=== PATIENT | male | born 1945 | race Caucasian/White ===

== ENCOUNTER 2018-08-06 11:30 | Emergency (ER) | payer MEDICARE ==
[~2018-08-06] VITALS: Ht 188 cm; Wt 108.9 kg
[2018-08-06 12:56] LABS: BASOPHILS ABSOLUTE AUTO 0.06 K/mm3 (0.00-0.23); BASOPHILS PERCENT AUTO 1 % (0-2); EOSINOPHILS ABSOLUTE AUTO 0.12 K/mm3 (0.00-0.68); EOSINOPHILS PERCENT AUTO 1 % (0-6); Hematocrit 44.7 % (37.0-53.0); Hemoglobin 15.2 g/dL (13.5-17.5); IMMATURE GRAN ABSOLUTE AUTO 0.03 K/mm3 (0.00-0.10); IMMATURE GRAN PERCENT AUTO 0 % (0-1); LYMPHOCYTES ABSOLUTE AUTO 1.55 K/mm3 (0.84-5.20); LYMPHOCYTES PERCENT AUTO 15 % (21-46); MONOCYTES ABSOLUTE AUTO 1.06 K/mm3 (0.16-1.47); MONOCYTES PERCENT AUTO 10 % (4-13); Mean Corpuscular HGB 29.4 pg (26.0-34.0); Mean Corpuscular Volume 87 fL (80-100); Mean Platelet Volume 9.6 fL (9.1-12.4); NEUTROPHILS ABSOLUTE AUTO 7.63 K/mm3 (1.96-9.15); NEUTROPHILS PERCENT AUTO 73 % (41-73); Platelet Count 312 K/mm3 (150-400); RDW Coefficient Variation 13.2 % (11.7-14.2); RDW Standard Deviation 41.6 fL (35.1-46.3); Red Blood Cell Count 5.17 M/mm3 (4.30-5.90); White Blood Cell Count 10.45 K/mm3 (4.00-11.30)
[2018-08-06 13:10] LABS: International Normalized Ratio 1.76; Prothrombin Time Results 17.7 Sec (9.7-11.5)
[2018-08-06 13:34] LABS: Albumin, Blood 3.5 g/dL (3.4-5.0); Albumin/Globulin Ratio 1.1 (0.8-1.8); Bilirubin, Total 0.4 mg/dL (0.1-1.0); Calcium, Blood 8.8 mg/dL (8.5-10.1); Creatinine, Blood 1.33 mg/dL (0.60-1.20); Globulin, Blood 3.3 g/dL (2.2-4.0); Potassium, Blood 3.9 mmol/L (3.5-5.5); Total Protein, Blood 6.8 g/dL (6.4-8.2)
[2018-08-06] MEDS ORDERED: WARF5 PO (13:36)
[2018-08-06] MEDS ORDERED: LOSA50 PO (13:36)
[2018-08-06] MEDS ORDERED: SIMV40 PO (13:37)
[2018-08-06] MEDS ORDERED: NYSTRITC TOP (13:37)
[2018-08-06] MEDS ORDERED: LEVSOD150 PO (13:37)
[2018-08-06] MEDS ORDERED: MONT10T PO (13:37)
[2018-08-06] MEDS ORDERED: Omeprazole20 M1 (13:37)
[2018-08-06] MEDS ORDERED: AMLO10 PO (13:38)
== END 2018-08-06 14:15 | disposition home or self-care (01) ==
LOC: ER 11:30
PROVIDERS: Emergency Medicine
DX: R55 Syncope and collapse (principal); E86.9 Volume depletion, unspecified; Z88.5 Allergy status to narcotic agent; Z88.8 Allergy status to other drugs, medicaments and biological substances
CPT/HCPCS: 36415; 71045; 80053; 85025; 85610; 93005; 93010; J7030

== ENCOUNTER 2020-04-10 21:21 | Inpatient (IN) | payer MEDICARE ==
[~2020-04-10] VITALS: Ht 188 cm; Wt 102.1 kg
[~2020-04-10 21:21] MED LIST: AMLO10 PO; LEVSOD150 PO; LOSA50 PO; MONT10T PO; NYSTRITC TOP; Omeprazole20 M1 PO; SIMV40 PO; WARF5 PO
[2020-04-10 22:24] LABS: BASOPHILS ABSOLUTE AUTO 0.04 K/mm3 (0.00-0.23); BASOPHILS PERCENT AUTO 1 % (0-2); EOSINOPHILS ABSOLUTE AUTO 0.16 K/mm3 (0.00-0.68); EOSINOPHILS PERCENT AUTO 2 % (0-6); Hematocrit 41.3 % (37.0-53.0); Hemoglobin 14.4 g/dL (13.5-17.5); IMMATURE GRAN ABSOLUTE AUTO 0.03 K/mm3 (0.00-0.10); IMMATURE GRAN PERCENT AUTO 0 % (0-1); LYMPHOCYTES ABSOLUTE AUTO 0.49 K/mm3 (0.84-5.20); LYMPHOCYTES PERCENT AUTO 6 % (21-46); MONOCYTES ABSOLUTE AUTO 0.74 K/mm3 (0.16-1.47); MONOCYTES PERCENT AUTO 10 % (4-13); Mean Corpuscular HGB 29.4 pg (26.0-34.0); Mean Corpuscular HGB Conc 34.9 g/dL (31.5-36.5); Mean Corpuscular Volume 85 fL (80-100); Mean Platelet Volume 9.4 fL (9.1-12.4); NEUTROPHILS ABSOLUTE AUTO 6.36 K/mm3 (1.96-9.15); NEUTROPHILS PERCENT AUTO 81 % (41-73); Platelet Count 222 K/mm3 (150-400); Red Blood Cell Count 4.89 M/mm3 (4.30-5.90); White Blood Cell Count 7.82 K/mm3 (4.00-11.30)
[2020-04-10 22:38] LABS: D-Dimer, Quantitative 0.2 mg/L FEU (0.00-0.52); International Normalized Ratio 1.51; Prothrombin Time Results 15.8 Sec (9.7-11.5)
[2020-04-10 22:43] LABS: Alanine Aminotransfer (ALT/SGP 25 U/L (12-78); Albumin, Blood 3.1 g/dL (3.4-5.0); Alk Phos 55 U/L (50-136); Anion Gap 8 mmol/L (6-16); Aspartate Aminotrans (AST/SGOT 11 U/L (12-37); Bilirubin, Total 0.5 mg/dL (0.1-1.0); Blood Urea Nitrogen 17 mg/dL (8-24); Bun/Creatinine Ratio 16.7 (12.0-20.0); CO2, Blood 24 mmol/L (21-32); Calcium, Blood 8.4 mg/dL (8.5-10.1); Chloride, Blood 90 mmol/L (98-108); Creatinine, Blood 1.02 mg/dL (0.60-1.20); Globulin, Blood 3.2 g/dL (2.2-4.0); Glomerular Filtration Rate >60 (60-); Glucose, Blood 112 mg/dL (70-99); Potassium, Blood 3.5 mmol/L (3.5-5.5); Sodium, Blood 122 mmol/L (136-145); Total Protein, Blood 6.3 g/dL (6.4-8.2); Troponin I <0.015 ng/mL (0.000-0.040)
[2020-04-11 02:25] LABS: Adenovirus Not Detected (NOT DETECT); Bordetella pertussis Not Detected (NOT DETECT); Chlamydophila pneumoniae Not Detected (NOT DETECT); Coronavirus 229E Not Detected (NOT DETECT); Coronavirus HKU1 Not Detected (NOT DETECT); Coronavirus NL63 Not Detected (NOT DETECT); Coronavirus OC43 Not Detected (NOT DETECT); Human Metapneumovirus Not Detected (NOT DETECT); Human Rhinovirus/Enterovirus Not Detected (NOT DETECT); Influenza A/2009-H1 Not Detected (NOT DETECT); Influenza A/H1 Not Detected (NOT DETECT); Influenza A/H3 Not Detected (NOT DETECT); Influenza B Not Detected (NOT DETECT); Mycoplasma pneumoniae Not Detected (NOT DETECT); Parainfluenza Virus 1 Not Detected (NOT DETECT); Parainfluenza Virus 2 Not Detected (NOT DETECT); Parainfluenza Virus 3 Not Detected (NOT DETECT); Parainfluenza Virus 4 Not Detected (NOT DETECT); Respiratory Syncytial Virus Not Detected (NOT DETECT); SARS-Cov-2 (COVID-19), BioFire Not Detected (NOT DETECT)
--- NOTE | 2020-04-11 03:59 | NUR ---
SAFETY SPEC SUMMARY ASSUMED CARE OF PT AROUND 0230. PT APPEARS TO BE DROWSY BUT ORIENTED. AT BEDSIDE TO ANSWER QUESTIONS. CURRENTLY USING CPAP WITH CONTINOUS BIOX IN PLACE. DENIES PAIN OR NAUSEA AT THIS TIME. GIVEN PRN APRESOLINE FOR HTN. NO ACUTE DISTRESS NOTED AT THIS TIME. BED IN LOWEST POSITION WITH CALL LIGHT IN REACH. WILL CONTINUE TO MONITOR AND REPORT TO ONCOMING RN.
[2020-04-11 05:10] LABS: BASOPHILS ABSOLUTE AUTO 0.06 K/mm3 (0.00-0.23); BASOPHILS PERCENT AUTO 1 % (0-2); EOSINOPHILS PERCENT AUTO 2 % (0-6); Hematocrit 42.8 % (37.0-53.0); Hemoglobin 14.3 g/dL (13.5-17.5); IMMATURE GRAN ABSOLUTE AUTO 0.02 K/mm3 (0.00-0.10); IMMATURE GRAN PERCENT AUTO 0 % (0-1); LYMPHOCYTES ABSOLUTE AUTO 0.64 K/mm3 (0.84-5.20); LYMPHOCYTES PERCENT AUTO 7 % (21-46); MONOCYTES ABSOLUTE AUTO 1.38 K/mm3 (0.16-1.47); MONOCYTES PERCENT AUTO 16 % (4-13); Mean Corpuscular HGB 29.2 pg (26.0-34.0); Mean Corpuscular HGB Conc 33.4 g/dL (31.5-36.5); Mean Corpuscular Volume 87 fL (80-100); Mean Platelet Volume 10.3 fL (9.1-12.4); NEUTROPHILS PERCENT AUTO 73 % (41-73); Platelet Count 134 K/mm3 (150-400); RDW Coefficient Variation 13.2 % (11.7-14.2)
[2020-04-11 05:26] LABS: International Normalized Ratio 1.54; Prothrombin Time Results 16.1 Sec (9.7-11.5)
[2020-04-11 05:31] LABS: Alanine Aminotransfer (ALT/SGP 22 U/L (12-78); Albumin/Globulin Ratio 0.9 (0.8-1.8); Alk Phos 54 U/L (50-136); Anion Gap 8 mmol/L (6-16); Aspartate Aminotrans (AST/SGOT 9 U/L (12-37); Bilirubin, Total 0.5 mg/dL (0.1-1.0); Blood Urea Nitrogen 15 mg/dL (8-24); Bun/Creatinine Ratio 15.4 (12.0-20.0); CO2, Blood 26 mmol/L (21-32); Calcium, Blood 8.3 mg/dL (8.5-10.1); Chloride, Blood 91 mmol/L (98-108); Creatinine, Blood 0.98 mg/dL (0.60-1.20); Globulin, Blood 3.4 g/dL (2.2-4.0); Glomerular Filtration Rate >60 (60-); Glucose, Blood 89 mg/dL (70-99); Sodium, Blood 125 mmol/L (136-145); Total Protein, Blood 6.4 g/dL (6.4-8.2)
[2020-04-11] MEDS ORDERED: WARF2.5 PO (08:13)
--- NOTE | 2020-04-11 10:27 | NUR ---
PATIENT COMPLAINED OF A HEADACHE. HE WAS GIVEN TYLENOL AND SWALLOWED, STATED THAT IT WENT DOWN. PATIENT THEN REPORTED THAT HE FELT LIKE THE PILL WAS STUCK. HE NOTED T OHAVE A SORE THROAT THIS MORNING. ASKED IF HE HAS EVER HAD ANY PROBLEM WITH SWALLOWING ISSUES BEFORE HE AND THE DENIES THAT. THE STATES SHE BELIEVES THAT IT IS IN PART TO THE FACT THAT THE PATIENT'S THROAT HURTS AND HE HAS HAD THAT FEELING BEFORE WHEN HIS THROAT WAS SORE. PATIENT ABLE TO SWALLOW WATER, APPLESAUCE, AND CRACKERS SINCE. HE IS JUST WANTING TO FALL ASLEEP. WILL ADDRESS THIS WITH DR. CALLEJAS WHEN HE MAKES HIS ROUNDS.
--- NOTE | 2020-04-11 18:08 | NUR ---
shift summary patient is alert and oriented. denies any concerns at this time. he is pleasant but very tired. is in the room with him at this time. he reports pain in his throat and reports he is having trouble swallowing his pills. this has been the second time today that the patient has struggled with pills. they went down on their own the first time. the patient denies having any trouble with pills in the past. he reports that he is feeling better today. his saturation is above 95% on room air. he uses cpap at night but no oxygen. patient is still on the continuous biox. he is more alert than the beginning of shift although he is tired. he denies chest pain.
--- NOTE | 2020-04-12 04:42 | NUR ---
DISK SHARPENER SUMMARY A/OX3. APPEARED TO SLEEP T/O THE NIGHT. MEDS GIVEN WHOLE IN APPLESAUCE D/T SORE THROAT AND TROUBLE SWALLOWING. COMPLIANT WITH CPAP, CONTINOUS BIOX IN PLACE. VSS. NO ACUTE CHANGES AT THIS TIME. BED IN LOWEST POSITION WITH CALL LIGHT IN REACH. WILL CONTINUE TO MONITOR AND REPORT TO ONCOMING RN.
[2020-04-12 05:16] LABS: International Normalized Ratio 1.86; Prothrombin Time Results 19.2 Sec (9.7-11.5)
[2020-04-12 05:19] LABS: Anion Gap 8 mmol/L (6-16); Blood Urea Nitrogen 11 mg/dL (8-24); CO2, Blood 25 mmol/L (21-32); Calcium, Blood 7.9 mg/dL (8.5-10.1); Chloride, Blood 91 mmol/L (98-108); Creatinine, Blood 0.79 mg/dL (0.60-1.20); Glomerular Filtration Rate >60 (60-); Glucose, Blood 102 mg/dL (70-99); Potassium, Blood 3.5 mmol/L (3.5-5.5); Sodium, Blood 124 mmol/L (136-145)
--- NOTE | 2020-04-12 17:55 | NUR ---
SHIFT SUMMARY PT A/O X3; PLEASANT AND COOPERATIVE WITH CARE. HE IS A 1 PERSON ASSIST TO THE BA AND USES THE URINAL AT THE SIDE OF THE BED. IN THE ROOM FOR THE MOST OF THE DAY. PT HAD A HEAD AND CHEST C/T TODAY AND EXPERIENCED SOME INCONTINENCE OF URINE AFTER THE PROCEDURE. 1000 ML FREE FLUID RESTRICTION IN ADDITION TO 1000 REGULAR FLUID RESTRICTION TO TOTAL 2000 ML FLUID RESTRICTION. ON TELE AND CONT PULSE OX. VSS; WCTM.
--- NOTE | 2020-04-13 04:29 | NUR ---
SHIFT SUMMARY AOX4. REPORTS 02/18 TOVAR & 10/18 NECK PAIN, MEDICATED 2X c TYLENOL-PT STATES RELIEF. REPORTS FEELING WEAK. VSS. TELE NSR @85. STATES SORE THROAT MAKES IT DIFFICULT TO SWALLOW, MEDS GIVEN IN APPLESAUCE & PT TOLERATED, PT USING CLORASEPTIC SPRAY PRN. LUNGS SOUND DIM T/O, E/U RESP, SPO2 >92% ON RA. PT REFUSED TO WEAR CPAP T/O NIGHT. HAS OCCASIONAL PRODUCTIVE COUGH c MODERATE THIN CLEAR SPUTUM. ABD VERY ROUND & FIRM. DENIES N/V. NS RUNNING @50ML/HR. PT VOIDED MULTIPLE TIMES THIS SHIFT. CALL LIGHT IN REACH.
[2020-04-13 05:20] LABS: International Normalized Ratio 1.97; Prothrombin Time Results 20.3 Sec (9.7-11.5)
[2020-04-13 05:25] LABS: Anion Gap 5 mmol/L (6-16); Blood Urea Nitrogen 11 mg/dL (8-24); Bun/Creatinine Ratio 10.9 (12.0-20.0); CO2, Blood 28 mmol/L (21-32); Calcium, Blood 8.1 mg/dL (8.5-10.1); Chloride, Blood 96 mmol/L (98-108); Creatinine, Blood 1.01 mg/dL (0.60-1.20); Glomerular Filtration Rate >60 (60-); Glucose, Blood 103 mg/dL (70-99); Potassium, Blood 3.5 mmol/L (3.5-5.5); Sodium, Blood 129 mmol/L (136-145)
[2020-04-13] MEDS ORDERED: VERA80 PO (08:35)
[2020-04-13] MEDS ORDERED: FLUT.05NI (08:36)
[2020-04-13] MEDS ORDERED: ACET325 PO (10:45)
[2020-04-13] MEDS ORDERED: AZIT250 PO (10:45)
[2020-04-13] MEDS ORDERED: SENN187 PO (10:46)
[2020-04-13] MEDS ORDERED: GUAI600T33 PO (10:46)
[2020-04-13] MEDS ORDERED: VISBIOME PROBIOTIC PO (10:48)
--- NOTE | 2020-04-13 11:43 | NUR ---
DISCHARGE SUMMARY PT A/O X3; PLEASANT AND COOPERATIVE WITH CARE. IN THE ROOM. PT COUGHING UP LARGE AMOUNTS OF THIN/CLEAR SPUTUM. IV DISCHARGED WITHIN NORMAL LIMITS. INSTRUCTED TO FOLLOW UP WITH PRIMARY PROVIDER AT [facility]. PT DISCHARGED HOME WITH .
== END 2020-04-13 11:40 | disposition home or self-care (01) | DRG 643 ==
LOC: ER 21:21 → MEDS 21:22
PROVIDERS: Emergency Medicine; Family Medicine; Internal Medicine; ADMIT Internal Medicine
DX: E22.2 Syndrome of inappropriate secretion of antidiuretic hormone (principal); J18.9 Pneumonia, unspecified organism; J44.1 Chronic obstructive pulmonary disease with (acute) exacerbation; J98.11 Atelectasis; J44.0 Chronic obstructive pulmonary disease with (acute) lower respiratory infection; Z79.01 Long term (current) use of anticoagulants; K21.9 Gastro-esophageal reflux disease without esophagitis; E03.9 Hypothyroidism, unspecified; E78.5 Hyperlipidemia, unspecified; Z86.718 Personal history of other venous thrombosis and embolism; I10 Essential (primary) hypertension; G47.33 Obstructive sleep apnea (adult) (pediatric); E66.9 Obesity, unspecified; Z20.828 Contact with and (suspected) exposure to other viral communicable diseases
CPT/HCPCS: 0202U; 36415; 70470; 71045; 71260; 80048; 80053; 83880; 83930; 83935; 84484; 85025; 85379; 85610; 87070; 87205; 87449; 93005; 93010; 94660; 94762; 96365; 96367; 96375; 97116; 97161; 97530; 99285-25; A9270; A9270-GY; G0378; J0456; J0696; J7030; J7050; Q9967

== ENCOUNTER 2020-04-26 10:17 | Inpatient (IN) | payer MEDICARE ==
[~2020-04-26] VITALS: Ht 188 cm; Wt 103.8 kg
[~2020-04-26 10:17] MED LIST changes: +ACET325 PO; +AZIT250 PO; +FLUT.05NI; +GUAI600T33 PO; +OMEP20ER PO; -Omeprazole20 M1 PO; +SENN187 PO; +VERA80 PO; +VISBIOME PROBIOTIC PO; +WARF2.5 PO
[2020-04-26 10:48] LABS: BASOPHILS ABSOLUTE AUTO 0.06 K/mm3 (0.00-0.23); BASOPHILS PERCENT AUTO 1 % (0-2); EOSINOPHILS ABSOLUTE AUTO 0.15 K/mm3 (0.00-0.68); EOSINOPHILS PERCENT AUTO 2 % (0-6); Hematocrit 42.4 % (37.0-53.0); Hemoglobin 14.4 g/dL (13.5-17.5); IMMATURE GRAN ABSOLUTE AUTO 0.04 K/mm3 (0.00-0.10); IMMATURE GRAN PERCENT AUTO 0 % (0-1); LYMPHOCYTES ABSOLUTE AUTO 1.52 K/mm3 (0.84-5.20); LYMPHOCYTES PERCENT AUTO 17 % (21-46); MONOCYTES ABSOLUTE AUTO 0.95 K/mm3 (0.16-1.47); MONOCYTES PERCENT AUTO 11 % (4-13); Mean Corpuscular HGB 29.5 pg (26.0-34.0); Mean Corpuscular Volume 87 fL (80-100); Mean Platelet Volume 9.4 fL (9.1-12.4); NEUTROPHILS ABSOLUTE AUTO 6.37 K/mm3 (1.96-9.15); NEUTROPHILS PERCENT AUTO 70 % (41-73); Platelet Count 320 K/mm3 (150-400); RDW Coefficient Variation 13.2 % (11.7-14.2); RDW Standard Deviation 41.6 fL (35.1-46.3); Red Blood Cell Count 4.88 M/mm3 (4.30-5.90); White Blood Cell Count 9.09 K/mm3 (4.00-11.30)
[2020-04-26] MEDS ORDERED: Vitamin D2000 UNIT PO (10:52)
[2020-04-26] MEDS ORDERED: CHLO4 (10:53)
[2020-04-26 10:59] LABS: Alanine Aminotransfer (ALT/SGP 24 U/L (12-78); Albumin, Blood 3.4 g/dL (3.4-5.0); Albumin/Globulin Ratio 0.9 (0.8-1.8); Alk Phos 64 U/L (50-136); Anion Gap 9 mmol/L (6-16); Aspartate Aminotrans (AST/SGOT 14 U/L (12-37); Bilirubin, Total 0.6 mg/dL (0.1-1.0); Blood Urea Nitrogen 50 mg/dL (8-24); Bun/Creatinine Ratio 26.9 (12.0-20.0); CO2, Blood 25 mmol/L (21-32); Calcium, Blood 8.8 mg/dL (8.5-10.1); Chloride, Blood 106 mmol/L (98-108); Creatinine, Blood 1.86 mg/dL (0.60-1.20); Globulin, Blood 3.7 g/dL (2.2-4.0); Glomerular Filtration Rate 38 (60-); Glucose, Blood 93 mg/dL (70-99); Potassium, Blood 3.1 mmol/L (3.5-5.5); Sodium, Blood 140 mmol/L (136-145); Total Protein, Blood 7.1 g/dL (6.4-8.2); Troponin I <0.015 ng/mL (0.000-0.040)
[2020-04-26 11:18] LABS: International Normalized Ratio 3.32; Prothrombin Time Results 33.2 Sec (9.7-11.5)
--- NOTE | 2020-04-26 18:46 | NUR ---
HE HAS BEEN ADMITTED TO 363 FROM THE ED. HE IS ORIENTED. HE IS WEAK. HIS MAIN COMPLAINT IS HIS SECRETIONS THAT HE CANNOT SWALLOW AND NASAL CONGESTION. FLONASE STARTED. IVF'S AND IV ANTIBIOTIC STARTED. HE HAS HIS OWN SUCTION WAND FOR HIS SECRETIONS AND USES IT WELL. NO CP. NO SOB EXCEPT WHEN HE HAS HICCOUGHS/SPASMS INTERMITTENTLY. HE IS NPO. CARDIAC CONSULT CALLED FOR THE MORNING. CONTINUOUS BIOX ON. WILL NEED TO START O2 BECAUSE WHEN HE JUST FELL ASLEEP HE DESATTED TO 80% FROM THE HIGH 90'S. I JUST SPOKE WITH . NEW ORDER FOR TELE AND FOR CPAP IF HE WANTS TO WEAR IT.
--- NOTE | 2020-04-27 04:30 | NUR ---
SHIFT SUMMARY ASSUMED CARE OF PT AT 1900. PT IS A/OX4. HEART SOUNDS REGULAR, TELE SHOWS SINUS @ 79. LUNG SOUNDS CLEAR, PT WAS ON 2L NC T/O THE NIGHT DUE TO REFUSING TO WEAR CPAP DUE TO HICCUPS/ EXCESS SILIVA. WHEN AWAKE, PT WOULD HICCUP/ COUGH/GAG ON HIS SILIVA, PT WAS NOT ABLE TO GET MUCH SLEEP DUE TO THIS. PT SUCSIONED HIMSELF T/O THE NIGHT. PT SITS ON THE SIDE OF THE BED INDEPENDENTLY TO USE THE URINAL. CALL LIGHT IN REACH, BED IN LOWEST POSITION, WILL CONTINUE TO MONITOR.
[2020-04-27 04:35] LABS: BASOPHILS ABSOLUTE AUTO 0.01 K/mm3 (0.00-0.23); BASOPHILS PERCENT AUTO 0 % (0-2); EOSINOPHILS PERCENT AUTO 0 % (0-6); Hematocrit 41.6 % (37.0-53.0); Hemoglobin 13.6 g/dL (13.5-17.5); IMMATURE GRAN ABSOLUTE AUTO 0.03 K/mm3 (0.00-0.10); IMMATURE GRAN PERCENT AUTO 1 % (0-1); LYMPHOCYTES ABSOLUTE AUTO 0.52 K/mm3 (0.84-5.20); LYMPHOCYTES PERCENT AUTO 9 % (21-46); MONOCYTES ABSOLUTE AUTO 0.06 K/mm3 (0.16-1.47); MONOCYTES PERCENT AUTO 1 % (4-13); Mean Corpuscular HGB 28.9 pg (26.0-34.0); Mean Corpuscular HGB Conc 32.7 g/dL (31.5-36.5); Mean Corpuscular Volume 89 fL (80-100); Mean Platelet Volume 9.4 fL (9.1-12.4); NEUTROPHILS ABSOLUTE AUTO 4.95 K/mm3 (1.96-9.15); NEUTROPHILS PERCENT AUTO 89 % (41-73); Platelet Count 305 K/mm3 (150-400); RDW Coefficient Variation 13.1 % (11.7-14.2); RDW Standard Deviation 42.7 fL (35.1-46.3); White Blood Cell Count 5.57 K/mm3 (4.00-11.30)
[2020-04-27 05:03] LABS: Albumin, Blood 3.1 g/dL (3.4-5.0); Albumin/Globulin Ratio 0.9 (0.8-1.8); Bilirubin, Total 0.4 mg/dL (0.1-1.0); Bun/Creatinine Ratio 33.8 (12.0-20.0); Calcium, Blood 8.7 mg/dL (8.5-10.1); Creatinine, Blood 1.33 mg/dL (0.60-1.20); Globulin, Blood 3.6 g/dL (2.2-4.0); Potassium, Blood 4.1 mmol/L (3.5-5.5); Total Protein, Blood 6.7 g/dL (6.4-8.2)
--- NOTE | 2020-04-27 13:20 | NUR ---
Patient is lying in bed and alert. Patient tells me about his medical issues and about his fears of throat cancer. Patient then talks at length about his latter-day views and his spiritual journey. I listen empathically., normalize patient's experience and provide prayer. Patient responds well and shows signs of being encouraged. I will continue to remain available to patient and family.
--- NOTE | 2020-04-28 04:51 | NUR ---
SHIFT SUMMARY PT CONTINUES TO HAVE ISSUES SWALLOWING HIS OWN SALIVA AND HAS HAD TO USE THE YANKER SUCTION AT THE BEDSIDE CONSTANTLY T/O THE SHIFT. THE INABILITY TO SWALLOW HIS SALIVA HAS BEEN SO DISRUPTIVE THAT HE HAS BEEN UNABLE TO SLEEP MOST OF THE NIGHT. PT REMAINS NPO, PENDING FURTHER TESTING AND POSSIBLE UPPER SCOPE TODAY. PT DENIES SOB, BUT DOES APPEAR LABORED WITH EXERTION. O2 IN PLACE. IV SOULMEDROL CONTINUED PER ORDERS. SATS WNL. PT A/OX4, PLESANT WITH CARE. NO ACUTE CHANGES OVERNIGHT. BED IN LOWEST POSITION, CALL LIGHT WITHIN REACH.
[2020-04-28 05:07] LABS: BASOPHILS ABSOLUTE AUTO 0.01 K/mm3 (0.00-0.23); BASOPHILS PERCENT AUTO 0 % (0-2); EOSINOPHILS PERCENT AUTO 0 % (0-6); Hematocrit 44.4 % (37.0-53.0); Hemoglobin 14.5 g/dL (13.5-17.5); IMMATURE GRAN ABSOLUTE AUTO 0.05 K/mm3 (0.00-0.10); IMMATURE GRAN PERCENT AUTO 1 % (0-1); LYMPHOCYTES ABSOLUTE AUTO 0.68 K/mm3 (0.84-5.20); LYMPHOCYTES PERCENT AUTO 7 % (21-46); MONOCYTES ABSOLUTE AUTO 0.36 K/mm3 (0.16-1.47); MONOCYTES PERCENT AUTO 4 % (4-13); Mean Corpuscular HGB 28.9 pg (26.0-34.0); Mean Corpuscular HGB Conc 32.7 g/dL (31.5-36.5); Mean Corpuscular Volume 88 fL (80-100); Mean Platelet Volume 9.7 fL (9.1-12.4); NEUTROPHILS ABSOLUTE AUTO 8.34 K/mm3 (1.96-9.15); NEUTROPHILS PERCENT AUTO 88 % (41-73); Platelet Count 324 K/mm3 (150-400); RDW Coefficient Variation 13.3 % (11.7-14.2); RDW Standard Deviation 43.3 fL (35.1-46.3); Red Blood Cell Count 5.02 M/mm3 (4.30-5.90); White Blood Cell Count 9.44 K/mm3 (4.00-11.30)
[2020-04-28 05:26] LABS: Anion Gap 8 mmol/L (6-16); Blood Urea Nitrogen 38 mg/dL (8-24); Bun/Creatinine Ratio 35.5 (12.0-20.0); CO2, Blood 24 mmol/L (21-32); Calcium, Blood 8.3 mg/dL (8.5-10.1); Chloride, Blood 114 mmol/L (98-108); Creatinine, Blood 1.07 mg/dL (0.60-1.20); Glomerular Filtration Rate >60 (60-); Glucose, Blood 123 mg/dL (70-99); Sodium, Blood 146 mmol/L (136-145)
[2020-04-28 10:44] LABS: Influenza A, PCR Negative (NEGATIVE); Influenza B, PCR Negative (NEGATIVE); Resp Syncytial Virus, PCR Negative (NEGATIVE); SARS-Cov-2 (COVID-19) PCR, MMC Negative (NEGATIVE)
--- NOTE | 2020-04-28 12:45 | NUR ---
UPSET STOMACH: PATIENT REPORTING MILD DISCOMFORT IN HIS STOMACH. SPOKE WITH DR. INMAN. NEW ORDER FOR DAILY ANTI-EMETIC.
--- NOTE | 2020-04-28 13:39 | NUR ---
BURNING EYES: PATIENT REPORTING SOME ALLERGIES CAUSING HIS RIGHT EYE TO BURN. DISCUSSED WITH DR. INMAN. NEW ORDERS FOR EYE DROPS.
--- NOTE | 2020-04-28 13:42 | NUR ---
DISCHARGE SUMMARY: LATE ENTRY FOR 13:10: PATIENT DENIED PAIN OR DISCOMFORT THROUGHOUT SHIFT. PATIENT DENIED FEELING FEBRILE. NEUTROPENIC PRECAUTIONS MAINTAINED. PATIENT ATE HER BREAKFAST AND LUNCH. PATIENT DENIED NAUSEA OR DIFFICULTY EATING. ATTEMPTED TO MAKE A FOLLOW-UP APPOINTMENT FOR THE PATIENT WITH DR. Rhina HALEY. THE OFFICE WAS CLOSED FOR LUNCH. MESSAGE WAS LEFT FOR THE OFFICE TO CALL THE PATIENT. PATIENT NOTIFIED. PATIENT REPORTS THAT SHE ALREADY HAS AN APPOINTMENT WITH HER ONCOLOGIST IN [place] WITH DR. HEENA BELLO. DISCHARGE RX FAXED TO [facility] PER PATIENT REQUEST. DISCHARGE EDUCATION AND INSTRUCTIONS PROVIDED. ALL QUESTIONS AND CONCERNS ADDRESSED. PATIENT DISCHARGED WITH HER MOTHER. PATIENT STABLE AT TIME OF DISCHARGE.
--- NOTE | 2020-04-28 19:14 | NUR ---
ASSUMED CARE RECEIVED REPORT FROM NADIRA STEINER. ASSUMED CARE OF PT. PT RESTING COMFORTABLY, NO S/S ACUTE DISTRESS NOTED, RESPS EVEN AND UNLABORED, PT SELF-SUCTIONING WITH SREE. HEADING HOME FOR THE EVENING. PT ASKING FOR CLEAR LIQUID SNACKS AT THIS TIME. CALL LIGHT, POSSESSIONS IN REACH, BED IN LOW POSITION. WCTM.
--- NOTE | 2020-04-28 19:37 | NUR ---
END OF SHIFT SUMMARY: PATIENT DENIED PAIN THROUGHOUT SHIFT. PATIENT REPORTED IRRITATED EYES, NEW ORDER FOR EYE DROPS RECEIVED. PATIENT REPORTED UPSET STOMACH IN THE MORNING. NEW ORDER TO ANTI-EMETIC. PATIENT CONTINUES TO HAVE SOME HICCOUPS/ALMOST SPASMS THAT CAUSE HIM TO NEED TO SPIT AND CLEAR HIS MOUTH/THROAT WITH THE ORAL SUCTION. CONTINUES TO ROUTINELY CLEAR MOUTH WITH ORAL SUCTION. SECRETIONS ARE CLEAR. EGD WILL OCCUR TOMORROW MORNING. IS AWARE AND WILL BE HERE IN THE MORNING. PATIENT IS AWARE THAT HE IS NPO AT MIDNIGHT.
[2020-04-29 05:27] LABS: BASOPHILS ABSOLUTE AUTO 0.01 K/mm3 (0.00-0.23); BASOPHILS PERCENT AUTO 0 % (0-2); EOSINOPHILS PERCENT AUTO 0 % (0-6); Hematocrit 43.1 % (37.0-53.0); Hemoglobin 14.5 g/dL (13.5-17.5); IMMATURE GRAN ABSOLUTE AUTO 0.05 K/mm3 (0.00-0.10); IMMATURE GRAN PERCENT AUTO 1 % (0-1); LYMPHOCYTES ABSOLUTE AUTO 0.89 K/mm3 (0.84-5.20); LYMPHOCYTES PERCENT AUTO 9 % (21-46); MONOCYTES ABSOLUTE AUTO 0.52 K/mm3 (0.16-1.47); MONOCYTES PERCENT AUTO 5 % (4-13); Mean Corpuscular HGB 29.1 pg (26.0-34.0); Mean Corpuscular HGB Conc 33.6 g/dL (31.5-36.5); Mean Corpuscular Volume 87 fL (80-100); Mean Platelet Volume 9.6 fL (9.1-12.4); NEUTROPHILS ABSOLUTE AUTO 8.72 K/mm3 (1.96-9.15); NEUTROPHILS PERCENT AUTO 86 % (41-73); Platelet Count 315 K/mm3 (150-400); RDW Coefficient Variation 13.2 % (11.7-14.2); RDW Standard Deviation 41.7 fL (35.1-46.3); Red Blood Cell Count 4.98 M/mm3 (4.30-5.90); White Blood Cell Count 10.19 K/mm3 (4.00-11.30)
[2020-04-29 05:43] LABS: International Normalized Ratio 3.29; Prothrombin Time Results 32.9 Sec (9.7-11.5)
[2020-04-29 05:46] LABS: Anion Gap 8 mmol/L (6-16); Blood Urea Nitrogen 38 mg/dL (8-24); Bun/Creatinine Ratio 35.5 (12.0-20.0); CO2, Blood 22 mmol/L (21-32); Calcium, Blood 8.7 mg/dL (8.5-10.1); Chloride, Blood 116 mmol/L (98-108); Creatinine, Blood 1.07 mg/dL (0.60-1.20); Glomerular Filtration Rate >60 (60-); Glucose, Blood 152 mg/dL (70-99); Potassium, Blood 3.5 mmol/L (3.5-5.5); Sodium, Blood 146 mmol/L (136-145)
--- NOTE | 2020-04-29 07:40 | NUR ---
SHIFT SUMMARY PT RESTING COMFORTABLY, NO S/S ACUTE DISTRESS NOTED. PT ATTEMPTED TO EAT SOME JELLO AND CHICKEN BROTH LAST NIGHT, UNABLE TO SWALLOW SAFELY, COUGHING CONSTANTLY. INSTRUCTED PT TO STOP ATTEMPTING TO EAT, RECEPTIVE. COUGH HARSH, PT REPORTING NAUSEA AND HICCUPS FROM MULTIPLE COUGHING FITS, CONTINUES TO SELF-SUCTION APPROPRIATELY. VS REVIEWED, STABLE, O2 SATS STABLE ON NC. PT NPO P MN FOR EGD THIS AM. AT THE BEDSIDE. CALL LIGHT, POSSESSIONS IN REACH, BED IN LOW POSITION. REPORT GIVEN TO NADIRA WATSON.
--- NOTE | 2020-04-29 15:05 | NUR ---
PT OFF UNIT TO DAY SURGERY VIA [facility] AT 0525. ACCOMPANIED.
--- NOTE | 2020-04-29 15:28 | NUR ---
04/29/20 1528 Yelena Burorughs [facility] [place]. SEE ANETHERSIA RECORD FOR CARE
--- NOTE | 2020-04-29 18:55 | NUR ---
SHIFT SUMMARY: PT TO DAY SURGERY FOR EGD AT 1500, RETURNED AT 1530. HYPERTENSIVE HE IS UNABLE TO TAKE PO MEDS; SPOKE TO DR. INMAN BY PHONE AT 1815, RECEIVED ORDER FOR LABETOLOL IV. C/O ABD PAIN FROM COUGHING AND PERSISTENT HICCUPS, BUT DECLINED PAIN MEDICATIONS. NO EVENTS ON TELEMETRY, SR 70-90. IVF CHANGED TO CLINIMIX AND LIPIDS PT'S SPOUSE CONCERNED ABOUT HIS NUTRITION. ATIVAN 0.5 MG IV CALMED HICCUPS FOR A SHORT TIME. GETTING UP TO BSC WITH 1 PERSON ASSIST. SUCTIONING OWN SECRETIONS. WILL HAVE SPEECH THERAPY EVAL IN THE MORNING.
--- NOTE | 2020-04-29 19:05 | NUR ---
ASSUMED CARE RECEIVED REPORT FROM NADIRA WATSON. ASSUMED CARE OF PT. RESTING COMFORTABLY, NO S/S ACUTE DISTRESS NOTED. DENIES NEEDS AT THIS TIME. CALL LIGHT, POSSESSIONS IN REACH, MATI.
--- NOTE | 2020-04-29 20:45 | NUR ---
SPOKE TO DR. DOWLING REGARDING PT'S BP, ALLERGY TO METOPROLOL. INFORMED OF CONVERSATION WITH PHARMACY, STATING THAT PT SHOULD NOT HAVE A REACTION D/T ADMINISTRATION OF SOLU-MEDROL. ORDERS RECEIVED. CONTINUE TO MONITOR.
[2020-04-30 06:29] LABS: Anion Gap 8 mmol/L (6-16); Blood Urea Nitrogen 36 mg/dL (8-24); Bun/Creatinine Ratio 37.5 (12.0-20.0); CO2, Blood 23 mmol/L (21-32); Calcium, Blood 8.2 mg/dL (8.5-10.1); Chloride, Blood 113 mmol/L (98-108); Creatinine, Blood 0.96 mg/dL (0.60-1.20); Glomerular Filtration Rate >60 (60-); Glucose, Blood 154 mg/dL (70-99); Potassium, Blood 3.4 mmol/L (3.5-5.5); Sodium, Blood 144 mmol/L (136-145)
--- NOTE | 2020-04-30 07:05 | NUR ---
SHIFT SUMMARY PT RESTING COMFORTABLY, NO S/S ACUTE DISTRESS NOTED. WAS MONITORED EVERY 1-2 HOURS WITH NEEDS MET. MEDICATED PER EMAR FOR HTN, NO S/S ADVERSE REACTION NOTED TO LABETALOL, NO C/O "TONGUE SWELLING" OR DYSPNEA. VS REVIEWED, BP'S STABLE. WET PRODUCTIVE COUGH CONTINUES, PT SELF-SUCTIONING APPROPRIATELY. MEDICATED X1 FOR ANXIETY/HICCUPS, EFFECTIVE. DENIES NEEDS AT THIS TIME. CALL LIGHT, POSSESSIONS IN REACH, BED IN LOW POSITION. REPORT GIVEN TO NADIRA MOORE.
--- NOTE | 2020-04-30 19:42 | NUR ---
SHIFT SUMMARY PT AXO, PLEASANT AND COOPERATIVE WITH CARE THOUGH EMOTIONAL AT TIMES. VSS. PT SWALLOWED WATER ALLOWED BY DR SOSA. TOLERATED WELL. PT TOLERATED SOME VERY THIN BEEF BROTH BUT PT STATES THAT THE BROTH WAS FOR HIS EMOTIONAL WELLBEING RATHER THAN FOR NUTRITION. CBG STABLE. CLINAMIX INFUSING PER EMAR. IV PATENT AND INFUSING AT THIS TIME. PT SUCTIONS SELF PRN. FREQUENT PRODUCTIVE COUGH. BED IN LOW POSITION, CALL LIGHT WITHIN REACH.
[2020-05-01 06:33] LABS: Anion Gap 7 mmol/L (6-16); Blood Urea Nitrogen 43 mg/dL (8-24); Bun/Creatinine Ratio 38.1 (12.0-20.0); CO2, Blood 26 mmol/L (21-32); Calcium, Blood 8.2 mg/dL (8.5-10.1); Chloride, Blood 112 mmol/L (98-108); Creatinine, Blood 1.13 mg/dL (0.60-1.20); Glomerular Filtration Rate >60 (60-); Glucose, Blood 149 mg/dL (70-99); Magnesium, Blood 2.2 mg/dL (1.6-2.4); Phosphorus, Blood 2.8 mg/dL (2.5-4.9); Potassium, Blood 3.4 mmol/L (3.5-5.5); Sodium, Blood 145 mmol/L (136-145)
[2020-05-01 06:39] LABS: International Normalized Ratio 1.28; Prothrombin Time Results 13.5 Sec (9.7-11.5)
--- NOTE | 2020-05-01 17:33 | NUR ---
SHIFT SUMMARY PT ALERT ORIENTED X4. CALLS APPROPRIATELY; AT BEDSIDE. FEEDING TUBE IS RUNNING CONTINUOSLY; DOBHOFF WAS PLACED THIS AM; TOLERATING WELL. PT WILL HAVE A PEG TUBE PLACE POSSIBLY SUNDAY. URINAL AT BEDSIDE; PT C/O SHOULDER PAIN- PT STATED MORE LIKE ARTHRITIS PAIN MEDICATED PER EMAR. BED IS IN THE LOWEST POSITION AND CALL LIGHTS WITHIN REACH
[2020-05-02 05:05] LABS: Magnesium, Blood 2.3 mg/dL (1.6-2.4); Phosphorus, Blood 3.1 mg/dL (2.5-4.9)
--- NOTE | 2020-05-02 07:22 | NUR ---
SHIFT SUMMARY: VSS. AFEB. AAOX3. QUIET RASPY VOICE. FREQUENT HACKING/HICCUPING/COUGHING FOLLOWED BY PRODUCTION AND SUCTION OF MOD AMTS OF SPUTUM. COUGHING/HICCUPING RESPONDED BEST TO ATIVAN. SOME RELIEF FROM COUGH SYRUP. TYL GIVEN FOR BACK PAIN DUE TO PT REMAINED W/HOB ELEVATED 2ND TO CONT NGT FEEDS. NGT RESIDUAL CHECKS: 90, 55, 145. TF SPEED INCREASED TO 35MLS/HR AT 2245, THEN 45MLS/HR AT 0545. NO ACUTE CHANGES OVERNIGHT.
--- NOTE | 2020-05-02 17:54 | NUR ---
SHIFT SUMMARY PT ALERT ORIENTEDX 4. CALLS APPROPRIATELY. AT BEDSIDE HALF THE DAY. PT IS ON [place] PUMP WITH THE RATE OF 55ML/HR; GOAL RATE OF 70; TOLERATING WELL AND 5ML RESIDUAL VOLUME. LUNG SOUNDS CLEAR; AND NO APPARENT DISTRESS. NO C.O PAIN, NAUSEA OR VOMITING. PT IS GETTING MEDICATION FOR COUGH PRN; AND SEEMS TO BE HELPING PER PT. PEG TUBE PLACEMENT FOR TOMORROW; PT GIVEN HEPARIN DOSE TODAY; AND HOLD OFF THE DOSE AT MIDNIGHT FOR PEG PLACEMENT. BED IS IN THE LOWEST POSITION AND CALL LIGHTS WITHIN REACH.
--- NOTE | 2020-05-03 05:18 | NUR ---
SHIFT SUMMARY: VSS. AFEB. AAOX3. VOICE QUIET AND HOARSE. DENIES SOB. HICCUPING, COUGHING, AND RETCHING IS LESS FREQUENT TONIGHT. THORAZINE AND COUGH SYRUP GIVEN PER ORDERS. NGT IN PLACE. TF STOPPED PER MD ORDERS AT 0045. PT REMAINS NPO IN PREPARATION FOR PEG PLACEMENT TODAY. NO ACUTE CHANGES OVERNIGHT. WILL CONT TO MONITOR.
[2020-05-03 10:15] LABS: International Normalized Ratio 1.07; Prothrombin Time Results 11.4 Sec (9.7-11.5)
--- NOTE | 2020-05-03 14:06 | NUR ---
PT TRANSPORTED TO [facility]. AGREES WITH PLANNED PROCEDURE.
--- NOTE | 2020-05-03 14:26 | NUR ---
05/03/20 1426 ALTAGRACIA MON History, Chart, Medications and Allergies reviewed before start of procedure. 3-LEAD EKG REVIEWED WITH PHYSICIAN PRIOR TO START OF PROCEDURE. O2 VIA N/C INTACT THROUGHOUT SEDATION/PROCEDURE. MONITOR INTACT WITH CONTINUOUS PULSE OXIMETRY AND INTERMITTENT BP. MAC WITH DR. TORRES
--- NOTE | 2020-05-03 15:07 | NUR ---
PATIENT ARRIVED BACK FROM DAY SURGERY FOR A PEG TUBE PLACEMENT. VSS, ON RA. TUBE HAS BEEN CLEARED TO USE AFTER 184 THIS EVENING. AT BEDSIDE.
--- NOTE | 2020-05-03 19:26 | NUR ---
PATIENT A/OX4, UP WITH FWW AND 1 ASSIST. PEG TUBE PLACED THIS AFTERNOON AND TUBE FEEDS STARTED THIS EVENING. PATIENT CONTINUES TO HAVE LARGE AMOUNT OF MUCOUS, REPSONDS WELL TO GUIFENASIN. HICCUPS WELL CONTROLLED WITH THORAZINE. CONTINUOUS BIOX FOR HX OF COPD, PATIENT MAINTAINING SATS ON RA. 20G IV R AC WNL AND SL. PATIENT DENIES ANY PAIN THIS SHIFT. HEPARIN FOR DVT PROPHYLAXIS UNTIL COUMADIN CAN BE RESUMED. VERY SUPPORTIVE.
--- NOTE | 2020-05-04 03:21 | NUR ---
GASTRIC RESIDUAL = 120cc. Pt tolerating cont feed well. No c/o abdominal discomfort. Rate increased to 35 ml/hr as ordered. Will cont to monitor.
--- NOTE | 2020-05-04 04:51 | NUR ---
TRAFFIC DIRECTOR SUMMARY PT A&OX4, ABLE TO MAKE NEEDS KNOWN. PLEASANT AND COOPERATIVE TO CARE. PT MEDICATED FOR L FOOT PAIN PER EMAR. NWB ON L FOOT. WALKING BOOT WHEN UP. CALM AND RESTED IN BED T/O SHIFT. DENIES CP, SOB, OR N&V. DRESSING TO L FOOT CDI. CALL LIGHT WITHIN REACH. WILL CONT TO MONITOR PT FOR ANY CHANGES.
--- NOTE | 2020-05-04 06:09 | NUR ---
SPOOL WINDER SUMMARY PT A&OX4, ABLE TO MAKE NEEDS KNOWN. PLEASANT AND COOPERATIVE TO CARE. NO C/O PAIN OR ANY DISCOMFORT THIS SHIFT. DENIES CP, N&V. PT O2 DESAT AT 87-89%. CURRENTLY ON O2 2LPM VIA NC. SATS AT 92-94% ON CONT BIOX. PT CONT TO EXPECTORATE MUCOUS, RESPONDS WELL WITH GUIAFENESIN. PEG TUBE IN PLACE, PATENT. ON CONT FEED AT 35ML/HR. FLUSHED ORDERED. PT HAD NO C/O ANY ABD DISCOMFORT THIS SHIFT. PT 1 PERSON ASSIST WITH FWW. ON TELE SR 88 BPM. CALM AND RESTED IN BED T/O SHIFT. BED AT LOWEST POSITION, CALL LIGHT WITHIN REACH. WILL CONT TO MONITOR PT FOR ANY CHANGES.
[2020-05-04 09:22] LABS: Magnesium, Blood 2.5 mg/dL (1.6-2.4)
[2020-05-04 09:28] LABS: Alanine Aminotransfer (ALT/SGP 114 U/L (12-78); Albumin, Blood 2.6 g/dL (3.4-5.0); Alk Phos 47 U/L (50-136); Anion Gap 11 mmol/L (6-16); Aspartate Aminotrans (AST/SGOT 26 U/L (12-37); Bilirubin, Total 0.7 mg/dL (0.1-1.0); Blood Urea Nitrogen 39 mg/dL (8-24); CO2, Blood 23 mmol/L (21-32); Calcium, Blood 8.3 mg/dL (8.5-10.1); Chloride, Blood 114 mmol/L (98-108); Globulin, Blood 2.7 g/dL (2.2-4.0); Glomerular Filtration Rate >60 (60-); Glucose, Blood 148 mg/dL (70-99); Potassium, Blood 3.4 mmol/L (3.5-5.5); Sodium, Blood 148 mmol/L (136-145); Total Protein, Blood 5.3 g/dL (6.4-8.2)
--- NOTE | 2020-05-04 18:18 | NUR ---
SHIFT SUMMARY PT A&OX4, ONE ASSIST WITH FWW. PLEASANT & COOPERATIVE WITH CARE, ABLE TO MAKE NEEDS KNOWN. PT DENIES N/V. PAIN HAS BEEN MANAGED WELL WITH PRESCRIBED MEDS. PT HAS PEG TUBE, DISCONTINUED CONTINOUS FEED AT 1800 PER DIETITIAN TO START BOLUS FEED AT 2100. PT IS ON CONTINOUS PUSLE OX WHEN SLEEPING. PT'S VISITED TODAY. NO OTHER CHANGES OR CONCERNS.
--- NOTE | 2020-05-05 06:51 | NUR ---
DESIGN ENGINEERING TECHNICIAN SUMMARY PT AAOX4 AND PLEASANT. CALLS APPROPRIATELY FOR ASSISTANCE. 1 ASSIST TO BSC. STARTED BOLUS TUBE FEEDINGS TONIGHT. PT TOLERATED FIRST 250 ML BOLUS WITH NO ISSUES. PT DOES COMPLAIN OF SOME ABD DISCOMFORT BUT STATES ITS TENDERNESS FROM THE PEG SITE ITSELF. GIVEN TYLENOL WITH GOOD PAIN RELIEF. PT ALSO TOLERATED 0600 TUBE FEEDING FOR 375 ML OF FORMULA. FLUIDS FLOW EASILY BY GRAVITY. PT REPORTS SOME ABD DISCOMORT AFTER BUT STATES HE DOESN'T FEEL BLOATED. AT ONE POINT THIS AM VERY SMALL AMOUNT OF BLOOD DRAINED FROM URETHRA. VERY LIGHT PINK IN A FEW SPOTS ON PT'S ATTENDS. PT STATES SOMETIMES IT BLANCAS WHEN HE URINATES OVER THE LAST FEW MONTHS. A FEW HOURS LATER PT URINATED AGAIN AND SAID HE FELT NO PAIN OR BURNING AT ALL. VSS, WILL CONTINUE TO MONITOR.
--- NOTE | 2020-05-05 15:39 | NUR ---
PT A&OX4, ONE ASSIST WITH FWW, PLEASANT & COOPERATIVE WITH CARE, ABLE TO MAKE NEEDS KNOWN. PT DENIES N/V. PAIN HAS BEEN MANAGED WELL WITH CURRENT ORDERS. PT HAS PEG TUBE, BOLUS FEED. PROVIDED TEACHING TO PT AND ON BOLUS FEEDING. PT IS ON CONTINOUS PUSE OX WHEN SLEEPING. NO OTHER CHANGES OR CONCERNS.
--- NOTE | 2020-05-06 05:02 | NUR ---
INTERNATIONAL ACCOUNT REPRESENTATIVE SUMMARY NO ACUTE CHANGES THIS SHIFT. PT AAOX4 AND PLEASANT. 1 ASSIST TO BSC. CONTINUES TO TOLERATE BOLUS TUBE FEEDINGS WITH LITTLE TO NO RESIDUALS NOTED. PT HAS RESTED MORE TONIGHT COMPARED TO YESTERDAY, ABD DISCOMFORT SEEMS IMPROVED. VSS, WILL CONTINUE TO MONITOR.
--- NOTE | 2020-05-06 15:54 | NUR ---
PROTONIX AND ELEVATED BP: DISCUSSED WITH DR. DIAL THAT THE PROTONIX PO AVAILABLE AT THE HOSPITAL IS NOT CRUSHABLE. NEW ORDERS. ALSO DISCUSSED THAT THE PATIENT CONTINUES TO HAVE ELEVATED BP'S. DR. DIAL REPORTS THAT SHE WILL ROUND ON THE PATIENT AGAIN.
--- NOTE | 2020-05-06 19:48 | NUR ---
END OF SHIFT SUMMARY: PATIENT TOLERATING PEG TUBE BOLUSES WELL. PATIENT REPORTED A FEW MINIMAL EPISODES OF HEART BURN THAT RESOLVED. PATIENT DENIED FEELING OVERFULL OR UNCOMFORTABLE FROM THE FEEDINGS AND FLUID BOLUSES. PATIENT DENIED NAUSEA OR ABDOMINAL DISCOMFORT. PATIENT'S ABLE TO DEMONSTRATE A TUBE FEEDING AND FLUID FLUSH. QUESTIONS AND CONCERNS ADDRESSED. DISCUSSED ELEVATED BP AND TRANSITION BACK TO COUMADIN WITH DR. DIAL (SEE NOTE). NEW ORDERS PLACED.
[2020-05-06 21:16] LABS: Alanine Aminotransfer (ALT/SGP 82 U/L (12-78); Albumin, Blood 2.3 g/dL (3.4-5.0); Albumin/Globulin Ratio 0.7 (0.8-1.8); Alk Phos 57 U/L (50-136); Anion Gap 3 mmol/L (6-16); Aspartate Aminotrans (AST/SGOT 16 U/L (12-37); Bilirubin, Total 0.5 mg/dL (0.1-1.0); Blood Urea Nitrogen 35 mg/dL (8-24); Bun/Creatinine Ratio 41.3 (12.0-20.0); CO2, Blood 28 mmol/L (21-32); Calcium, Blood 7.8 mg/dL (8.5-10.1); Chloride, Blood 106 mmol/L (98-108); Creatinine, Blood 0.85 mg/dL (0.60-1.20); Globulin, Blood 3.3 g/dL (2.2-4.0); Glomerular Filtration Rate >60 (60-); Glucose, Blood 198 mg/dL (70-99); Magnesium, Blood 2.2 mg/dL (1.6-2.4); Phosphorus, Blood 2.1 mg/dL (2.5-4.9); Potassium, Blood 3.7 mmol/L (3.5-5.5); Sodium, Blood 137 mmol/L (136-145); Total Protein, Blood 5.6 g/dL (6.4-8.2)
[2020-05-07 05:12] LABS: International Normalized Ratio 0.99; Prothrombin Time Results 10.6 Sec (9.7-11.5)
[2020-05-07 05:23] LABS: Alanine Aminotransfer (ALT/SGP 72 U/L (12-78); Albumin, Blood 2.1 g/dL (3.4-5.0); Albumin/Globulin Ratio 0.7 (0.8-1.8); Alk Phos 45 U/L (50-136); Anion Gap 5 mmol/L (6-16); Aspartate Aminotrans (AST/SGOT 12 U/L (12-37); Bilirubin, Total 0.4 mg/dL (0.1-1.0); Blood Urea Nitrogen 32 mg/dL (8-24); Bun/Creatinine Ratio 39.2 (12.0-20.0); CO2, Blood 27 mmol/L (21-32); Chloride, Blood 107 mmol/L (98-108); Creatinine, Blood 0.82 mg/dL (0.60-1.20); Globulin, Blood 2.9 g/dL (2.2-4.0); Glomerular Filtration Rate >60 (60-); Glucose, Blood 157 mg/dL (70-99); Magnesium, Blood 2.4 mg/dL (1.6-2.4); Phosphorus, Blood 2.6 mg/dL (2.5-4.9); Potassium, Blood 3.7 mmol/L (3.5-5.5); Sodium, Blood 139 mmol/L (136-145)
--- NOTE | 2020-05-07 07:47 | NUR ---
05/07/20 0600 TOLERATING BOLUS PEG TUBE FEEDINGS FAIR. C/O HEARTBURN/INDIGESTION WITH FEEDINGS. RESIDUAL ONLY 10 ML BEFORE EACH FEED. MOVES WELL IN BED. WILL NOTIFY ON-CALL MD ABOUT HEARTBURN/INDIGESTION ISSUES. PT AWARE OF MRI OF BRAIN ORDERED FOR TODAY.
--- NOTE | 2020-05-07 07:52 | NUR ---
pt sleeping wakes to verbal stimuli stated no abd pain at this time but after feeds thru the peg he has discomfort that last a hr or so that is like gerd no emesis mri of head sched today
--- NOTE | 2020-05-07 09:05 | NUR ---
meds given per peg tube no residual additional 275 ml h20 also given flush pt david well
--- NOTE | 2020-05-07 11:09 | NUR ---
updated pt per phone
--- NOTE | 2020-05-07 11:41 | NUR ---
wc transport to mri
--- NOTE | 2020-05-07 12:40 | NUR ---
pt back from mri in recliner chair water bolus given
--- NOTE | 2020-05-07 13:58 | NUR ---
pt having heartburn maalox given with tf
--- NOTE | 2020-05-07 14:53 | NUR ---
DR HIGGINS BY TO SEE PT REVIEWED PLAN PER GI
--- NOTE | 2020-05-07 15:12 | NUR ---
PT'S AT BEDSIDE UPDATED HER MEDS GIVEN
--- NOTE | 2020-05-07 16:51 | NUR ---
pt had 60ml residual will hold tf and recheck med given with 60 ml h20
--- NOTE | 2020-05-07 18:05 | NUR ---
PT HAD 60 ML RESIDUAL AFTER WAITING A HOUR WITH HOLDING TF GAVE PT 120 ML JEVITY VS 250 ML
[2020-05-08 05:11] LABS: International Normalized Ratio 1.09; Prothrombin Time Results 11.6 Sec (9.7-11.5)
[2020-05-08 05:26] LABS: Alanine Aminotransfer (ALT/SGP 74 U/L (12-78); Albumin, Blood 2.2 g/dL (3.4-5.0); Albumin/Globulin Ratio 0.7 (0.8-1.8); Alk Phos 48 U/L (50-136); Anion Gap 5 mmol/L (6-16); Aspartate Aminotrans (AST/SGOT 18 U/L (12-37); Bilirubin, Total 0.4 mg/dL (0.1-1.0); Blood Urea Nitrogen 27 mg/dL (8-24); Bun/Creatinine Ratio 34.6 (12.0-20.0); CO2, Blood 27 mmol/L (21-32); Calcium, Blood 7.8 mg/dL (8.5-10.1); Chloride, Blood 104 mmol/L (98-108); Creatinine, Blood 0.78 mg/dL (0.60-1.20); Glomerular Filtration Rate >60 (60-); Glucose, Blood 133 mg/dL (70-99); Magnesium, Blood 2.3 mg/dL (1.6-2.4); Phosphorus, Blood 2.7 mg/dL (2.5-4.9); Potassium, Blood 3.9 mmol/L (3.5-5.5); Sodium, Blood 136 mmol/L (136-145); Total Protein, Blood 5.2 g/dL (6.4-8.2)
--- NOTE | 2020-05-08 07:54 | NUR ---
PT IS COMPLAINING OF ACID REFLUX THIS MORNING. DR. HIGGINS NOTIFIED. ASSISTANT SIGNAL MAINTAINER CONTACTED REGARDING DIFFICUTLY WITH FEEDS AND HIGH RESIDUALS. WILL CONTINUE TO MONITOR.
--- NOTE | 2020-05-08 08:05 | NUR ---
SUMMARY PT IWTH RESIDUALS OF 100ML AND 105ML TONIGHT. PT UNABLE TO TOLERATE 0600 FEED.MEDICATED WITH ZOFRAN AND PROTONIX PER ROUTINE ORDER.PT HAD SPIT UP X1 TONIGHT WHICH WAS AFTER HE WAS COUGHING ON PHLEGM AND MOSTLY CONTAINED PHLEGM. PT HAS DIFFICULTY MANAGING ORAL SECRETIONS AND SINUS DRNG FORM ALLERGIC RHINITIS.USES YANKAUER.PT ABD LARGELY DISTENDED ALTHOUGH PT REPORTS THIS USUAL FOR HIM.
--- NOTE | 2020-05-08 16:24 | NUR ---
RESIDUAL RESIDUAL CHECKED AND 220ML WAS REMOVED. DR. HIGGINS AT BEDSIDE SAID OK TO HOLD 1600 FLUIDS SINCE PT HAD RESIDUAL OF 220ML. IV FLUIDS REQUESTED SINCE PT REPORTS FEELING DEHYDRATED. WILL CONTINUE TO MONITOR.
--- NOTE | 2020-05-08 16:59 | NUR ---
SHIFT SUMMARY PT HAS CONTINUED TO COMPLAIN OF GERD AND A "FULL" FEELING. PT HAS ACID REFLUX REGARDLESS IF FEEDINGS ARE HELD OR GIVEN. DR. HIGGINS IS AWARE AND STOPPED STERIODS SINCE THEY CAN WORSEN GERD. PT'S HOB IS ELEVATED AFTER FEEDINGS AND FLUIDS. REGLAN DOSING ALSO INCREASED TO ENCOURAGE MOTILITY. PT IS A 1 PERSON ASSIST FOR TRANSFERS. HE STILL HAS DIFFICULTY MANAGING SECREATIONS AND USES SUCTION INDEPENDENTLY. IV FLUIDS TO BE STARTED SINCE PT CANNOT TOLERATE HYDRATION BOLUSES THROUGH TUBE. VSS. WILL CONTINUE TO MONITOR UNTIL REPORT TO ONCOMING RN.
[2020-05-09 04:56] LABS: BASOPHILS ABSOLUTE AUTO 0.07 K/mm3 (0.00-0.23); BASOPHILS PERCENT AUTO 1 % (0-2); EOSINOPHILS ABSOLUTE AUTO 0.01 K/mm3 (0.00-0.68); EOSINOPHILS PERCENT AUTO 0 % (0-6); Hematocrit 44.3 % (37.0-53.0); Hemoglobin 14.4 g/dL (13.5-17.5); IMMATURE GRAN ABSOLUTE AUTO 0.53 K/mm3 (0.00-0.10); IMMATURE GRAN PERCENT AUTO 4 % (0-1); LYMPHOCYTES ABSOLUTE AUTO 0.93 K/mm3 (0.84-5.20); LYMPHOCYTES PERCENT AUTO 7 % (21-46); MONOCYTES ABSOLUTE AUTO 0.95 K/mm3 (0.16-1.47); MONOCYTES PERCENT AUTO 7 % (4-13); Mean Corpuscular HGB 28.6 pg (26.0-34.0); Mean Corpuscular HGB Conc 32.5 g/dL (31.5-36.5); Mean Corpuscular Volume 88 fL (80-100); Mean Platelet Volume 11.2 fL (9.1-12.4); NEUTROPHILS PERCENT AUTO 81 % (41-73); Platelet Count 172 K/mm3 (150-400); RDW Coefficient Variation 13.4 % (11.7-14.2); RDW Standard Deviation 43.7 fL (35.1-46.3); Red Blood Cell Count 5.03 M/mm3 (4.30-5.90); White Blood Cell Count 13.19 K/mm3 (4.00-11.30)
[2020-05-09 05:10] LABS: International Normalized Ratio 1.27; Prothrombin Time Results 13.4 Sec (9.7-11.5)
[2020-05-09 05:29] LABS: Alanine Aminotransfer (ALT/SGP 73 U/L (12-78); Albumin, Blood 2.3 g/dL (3.4-5.0); Albumin/Globulin Ratio 0.7 (0.8-1.8); Alk Phos 52 U/L (50-136); Anion Gap 5 mmol/L (6-16); Aspartate Aminotrans (AST/SGOT 22 U/L (12-37); Bilirubin, Total 0.5 mg/dL (0.1-1.0); Blood Urea Nitrogen 24 mg/dL (8-24); CO2, Blood 28 mmol/L (21-32); Calcium, Blood 7.9 mg/dL (8.5-10.1); Chloride, Blood 104 mmol/L (98-108); Creatinine, Blood 0.96 mg/dL (0.60-1.20); Globulin, Blood 3.1 g/dL (2.2-4.0); Glomerular Filtration Rate >60 (60-); Glucose, Blood 101 mg/dL (70-99); Magnesium, Blood 2.3 mg/dL (1.6-2.4); Phosphorus, Blood 2.5 mg/dL (2.5-4.9); Potassium, Blood 3.4 mmol/L (3.5-5.5); Sodium, Blood 137 mmol/L (136-145); Total Protein, Blood 5.4 g/dL (6.4-8.2)
--- NOTE | 2020-05-09 08:06 | NUR ---
SUMMARY PT WITH RESIDUALS OF 40 ML AND 10 ML THIS SHIFT. TOLERATED 1/2 CONTAINER OF FEEDING. VERB FEELS BETTER THIS AM. HAD REGLAN X1.
--- NOTE | 2020-05-09 20:40 | NUR ---
SUMM- PT ALRET AND ORIENTED. USES CALL LIGHT. PT STANDS UP AT THE EDGE OF BED AND USES THE URINAL WITH SBA, GOOD STRENGTH AND COORDINATION. SAT UP IN CHAIR FOR 2 HOURS THIS MORNING. PT HAD RESIDUALS UNDER 30 ML EXCEPT ONCE AT PM TIME 120ML RESIDUAL REINSTILLED. PT HAS NOT BEEN TOLERATING BOLUS TUBE FEEDS, HAVING TO INSTILL USING KANGAROO PUMP OVER 2 HOURS. SOON AFTER FEEDINGS START PT STATES L LOWER ABD PAIN CRAMPING . PT'S STOMACH APPEARS MORE DISTENDED DURING THESE TIMES, NORMOACTIVE BT'S, DENIES FLATUS. PT HAD GOOD BM 05/08. TOLREATED WATER BOLUS OK WITHOUT MUCH COMPLAINT. MEDICATED WITH NORCO ONCE TODAY AND PT STATES IT HELPED HIS NECK PAIN. PT HAS BEEN VERY SLEEPY AND HAD A 3 HOUR NAP AFTER BEING UP IN THE CHAIR IN THE AM. FROM 10-1400. AT BEDSIDE MOST OF THE AFTERNOON, INVOLVED IN CARE AND PLANS ON TAKING PT HOME.
--- NOTE | 2020-05-09 22:38 | NUR ---
PT REFUSED 2200 FEEDING ALLOWED MED PASS
--- NOTE | 2020-05-10 03:43 | NUR ---
SHORTNESS OF BREATH OIM CONSULTANT CALLED NURSE INTO ROOM PT WAS REPORTING SHORTNESS OF BREATH. PT WAS RESTING WITH BOTH HANDS ON HIS TABLE IN A TRIPOD POSITION. V/S WERE STABLE AND LUNG SOUNDS WERE CLEAR/DIMINISHED IN ALL BUT RLL WHICH HAD FAINT CRACKLES. CALLED RT IN FOR A BREATHING TREATMENT. PT CURRENTLY SITTING ON EDGE OF BED WITH TREATMENT. WILL MONITOR PT FOR ANY IMPROVEMENT OR CHANGES.
[2020-05-10 04:19] LABS: BASOPHILS ABSOLUTE AUTO 0.05 K/mm3 (0.00-0.23); BASOPHILS PERCENT AUTO 0 % (0-2); EOSINOPHILS ABSOLUTE AUTO 0.12 K/mm3 (0.00-0.68); EOSINOPHILS PERCENT AUTO 1 % (0-6); Hematocrit 39.2 % (37.0-53.0); Hemoglobin 13.2 g/dL (13.5-17.5); IMMATURE GRAN PERCENT AUTO 4 % (0-1); LYMPHOCYTES ABSOLUTE AUTO 1.02 K/mm3 (0.84-5.20); LYMPHOCYTES PERCENT AUTO 8 % (21-46); MONOCYTES PERCENT AUTO 7 % (4-13); Mean Corpuscular HGB 29.5 pg (26.0-34.0); Mean Corpuscular HGB Conc 33.7 g/dL (31.5-36.5); Mean Corpuscular Volume 88 fL (80-100); Mean Platelet Volume 11.1 fL (9.1-12.4); NEUTROPHILS ABSOLUTE AUTO 9.63 K/mm3 (1.96-9.15); NEUTROPHILS PERCENT AUTO 79 % (41-73); Platelet Count 153 K/mm3 (150-400); RDW Coefficient Variation 13.5 % (11.7-14.2); RDW Standard Deviation 43.3 fL (35.1-46.3); Red Blood Cell Count 4.47 M/mm3 (4.30-5.90); White Blood Cell Count 12.22 K/mm3 (4.00-11.30)
[2020-05-10 04:34] LABS: International Normalized Ratio 1.49; Prothrombin Time Results 15.6 Sec (9.7-11.5)
[2020-05-10 04:37] LABS: Alanine Aminotransfer (ALT/SGP 65 U/L (12-78); Albumin/Globulin Ratio 0.8 (0.8-1.8); Alk Phos 48 U/L (50-136); Anion Gap 4 mmol/L (6-16); Aspartate Aminotrans (AST/SGOT 19 U/L (12-37); Bilirubin, Total 0.6 mg/dL (0.1-1.0); Blood Urea Nitrogen 22 mg/dL (8-24); Bun/Creatinine Ratio 19.5 (12.0-20.0); CO2, Blood 28 mmol/L (21-32); Calcium, Blood 7.6 mg/dL (8.5-10.1); Chloride, Blood 106 mmol/L (98-108); Creatinine, Blood 1.13 mg/dL (0.60-1.20); Globulin, Blood 2.6 g/dL (2.2-4.0); Glomerular Filtration Rate >60 (60-); Glucose, Blood 86 mg/dL (70-99); Phosphorus, Blood 2.7 mg/dL (2.5-4.9); Potassium, Blood 3.6 mmol/L (3.5-5.5); Sodium, Blood 138 mmol/L (136-145); Total Protein, Blood 4.6 g/dL (6.4-8.2)
--- NOTE | 2020-05-10 15:51 | NUR ---
Patient is lying in bed and alert with spouse bedside. Patient tells me about the plan to go home with home health. Patient tells me that he can't talk well and so I conduct a short visit to keep patient from continuing to talk. I provide pastoral certified alcohol counselor and prayer. Patient and spouse voice appreciation for the prayer.
--- NOTE | 2020-05-10 18:30 | NUR ---
SHIFT SUMMARY PT A/O X2 WITH PERIODS OF CONFUSION. PT HAS REPORTED FEELING VERY TIRED THIS SHIFT. Q2 BOLUS FEEDINGS ALTERNATING BETWEEN FORMULA AND WATER. PT USES URINAL IND. IN BED. COUGHS UP LARGE AMOUNTS OF SPUTUM AND HAS HICCUPS OFTEN. MEDICATED X1 WITH REGLAN. VSS; RESTING COMFORTABLY IN BED WITH CALL LIGHT IN REACH.
--- NOTE | 2020-05-10 19:50 | NUR ---
ASSUMED CARE. AMEE AOX3, COOPERTIVE. SCRATCHY VOICE NOTED. HAS CONTINUOUS SPUTUM PRODUCTION THAT HE IS ABLE TO COUGH OUT. LUNG SOUNDS ARE CLEAR. DENIES ANY SOB, CHEST PAIN, N/T, OR OTHER SYMPTOMS. STARTED HIS 1800 TUBE FEED ON THE [place] PUMP WE DON'T HAVE THE CAN SUPPLY ONLY BAG. SET PUMP FOR INFUSION OVER AN HOUR PER PATIENT REQUEST. PEG TUBE RESIDUAL CHECKED ONLY 25CC OF BILE NOTED. ABDOMIN DISTENDED ROUND, FIRM, BT HYPOACTIVE. STARTED TUBE FEEDING. STATES HE DOES NOT DO THE 2200 TUBE FEED THAT THIS IS HIS LAST FOR THE NIGHT. DENIES PAIN OR DISCOMFORT. NEW GAUZE PLACED AROUND PEG SITE. CALL LIGHT IN REACH. WILL CONTINUE TO MONITOR.
[2020-05-11 05:18] LABS: International Normalized Ratio 1.69; Prothrombin Time Results 17.6 Sec (9.7-11.5)
[2020-05-11 05:28] LABS: Alanine Aminotransfer (ALT/SGP 56 U/L (12-78); Albumin/Globulin Ratio 0.7 (0.8-1.8); Alk Phos 48 U/L (50-136); Anion Gap 5 mmol/L (6-16); Aspartate Aminotrans (AST/SGOT 15 U/L (12-37); Bilirubin, Total 0.6 mg/dL (0.1-1.0); Blood Urea Nitrogen 17 mg/dL (8-24); Bun/Creatinine Ratio 17.4 (12.0-20.0); CO2, Blood 28 mmol/L (21-32); Calcium, Blood 7.8 mg/dL (8.5-10.1); Chloride, Blood 106 mmol/L (98-108); Creatinine, Blood 0.98 mg/dL (0.60-1.20); Globulin, Blood 2.8 g/dL (2.2-4.0); Glomerular Filtration Rate >60 (60-); Glucose, Blood 93 mg/dL (70-99); Phosphorus, Blood 2.2 mg/dL (2.5-4.9); Potassium, Blood 3.4 mmol/L (3.5-5.5); Sodium, Blood 139 mmol/L (136-145); Total Protein, Blood 4.8 g/dL (6.4-8.2)
--- NOTE | 2020-05-11 05:46 | NUR ---
SHIFT SUMMARY: AOX3, 1 ASSIST BUT INDEPENDENT WITH URINAL AT BEDSIDE. LUNG SOUNDS DIMINISHED, LARGE AMOUNT OF SPUTUM THAT HE SPITS UP FREQUENTLY. NO SOB. HAD NASAL CONGESTION LAST NIGHT THAT HE FELT HE COULD NOT BREATH, PLACED ON HUMITIFER O2 WHICH HELPED TO OPEN HIS NASAL PASSAGES. ALSO GOT ORDER FOR VICKS. HE KNOWS HE NEEDS TO WEAN OFF THE OXYGEN THAT IT WAS ONLY FOR TONIGHT. PEG TUBE FLUSHED PER ORDERS. HE REFUSED 2200 FEEDING, STATES HE DOES NOT EAT THAT LATE EVER. DINNER WAS LATE DUE TO SUPPLIES. BOLUS USING KANGROO PUMP DUE TO NOT HAVING CAN SUPPLY. TOLERATED WELL. IVF INFUSING AT LOW RATE WITH NO PROBLEMS. VS SHOWED HTN AT START OF SHIFT DUE TO MOVEMENT. LATER IS RETURNED TO NORMAL LIMITS. AFEBRILE. NO OTHER CHANGES TO NOTE. CALL LIGHT REMAINED IN REACH.
[2020-05-11] MEDS ORDERED: ALBU90OI INH (14:06)
[2020-05-11] MEDS ORDERED: CHLO25A PT (14:07)
[2020-05-11] MEDS ORDERED: GUAI200 PO (14:08)
[2020-05-11] MEDS ORDERED: ZADITOR5 M1 BOTHEYES (14:09)
[2020-05-11] MEDS ORDERED: OCEAN104 ML (14:11)
[2020-05-11] MEDS ORDERED: ACET325 PO (14:11)
[2020-05-11] MEDS ORDERED: Q-Tussin100 MG/5 M PO (14:21)
--- NOTE | 2020-05-11 16:36 | NUR ---
DISCHARGE NOTE THIS RN REMOVED PT IV PER DOCUMENTATION. THIS RN REVIEWED DC INSTRUCTIONS AND MEDICATIONS WITH PT AND PT'S WHO EACH VERBALIZED AN UNDERSTANDING. PT'S GATHERED ALL PT BELONGINGS AND BROUGHT THEM TO HER CAR. THIS RN ASSISTED PT INTO WHEELCHAIR AND DISCHARGE VOLUNTEER WHEELED PT OUT AT APPROXIMATELY 1630. PT HAS HOME WALKER THAT WAS ORDERED WITH HIM UPON DISCHARGE FROM THE HOSPITAL. PT AND DRESSED PT IN HOME CLOTHING PRIOR TO DC.
== END 2020-05-11 16:36 | disposition home health service (06) | DRG 391 ==
LOC: ER 10:17 → MEDS 10:18
PROVIDERS: Dentist General Practice; Emergency Medicine; Family Medicine; Pharmacist; Student in an Organized Health Care Education/Training Program; ADMIT Internal Medicine
PROC: 5A09357 Assistance with Respiratory Ventilation, Less than 24 Consecutive Hours, Continuous Positive Airway Pressure (ICD-10-PCS; 2020-04-28)
PROC: 0DJ08ZZ Inspection of Upper Intestinal Tract, Via Natural or Artificial Opening Endoscopic (ICD-10-PCS; principal; 2020-04-29 09:00)
PROC: 0DH63UZ Insertion of Feeding Device into Stomach, Percutaneous Approach (ICD-10-PCS; 2020-05-03 15:45)
DX: K44.9 Diaphragmatic hernia without obstruction or gangrene (principal); J69.0 Pneumonitis due to inhalation of food and vomit; E43 Unspecified severe protein-calorie malnutrition; N17.9 Acute kidney failure, unspecified; J44.1 Chronic obstructive pulmonary disease with (acute) exacerbation; I47.1 Supraventricular tachycardia; K21.00 Gastro-esophageal reflux disease with esophagitis, without bleeding; R13.13 Dysphagia, pharyngeal phase; K29.70 Gastritis, unspecified, without bleeding; E87.6 Hypokalemia; Z20.828 Contact with and (suspected) exposure to other viral communicable diseases; E86.1 Hypovolemia; I10 Essential (primary) hypertension; E03.9 Hypothyroidism, unspecified; E78.5 Hyperlipidemia, unspecified; G47.33 Obstructive sleep apnea (adult) (pediatric); E66.9 Obesity, unspecified; J30.9 Allergic rhinitis, unspecified; G25.2 Other specified forms of tremor; R06.6 Hiccough; I48.91 Unspecified atrial fibrillation; R94.31 Abnormal electrocardiogram [ECG] [EKG]; R49.0 Dysphonia; R79.1 Abnormal coagulation profile; K11.6 Mucocele of salivary gland; Z86.718 Personal history of other venous thrombosis and embolism; Z68.28 Body mass index [BMI] 28.0-28.9, adult; Z88.5 Allergy status to narcotic agent; Z88.8 Allergy status to other drugs, medicaments and biological substances; Z79.899 Other long term (current) drug therapy; Z79.01 Long term (current) use of anticoagulants
CPT/HCPCS: 0241U; 36415; 70551; 71045; 74230; 80048; 80053; 82947; 83735; 83880; 84100; 84484; 85025; 85610; 87338; 88305; 88342; 92526; 92611; 93005; 93010; 93306; 94640; 94760; 94762; 96360; 96361; 96365; 96366; 96375; 96376; 97110; 97116; 97162; 97530; 99285-25; A9270-GY; C1751; C1769; C9113; G0378; J0456; J1644; J2060; J2405; J2704; J2765; J2920; J3010; J3411; J3480; J7030; J7040; J7050; J7070; J7120

== ENCOUNTER 2020-05-20 15:36 | Emergency (ER) | payer MEDICARE ==
[~2020-05-20] VITALS: Ht 188 cm; Wt 102.1 kg
[~2020-05-20 15:36] MED LIST changes: +ALBU90OI INH; +CHLO25A PT; +CHLO4; +GUAI200 PO; +OCEAN104 ML; +Q-Tussin100 MG/5 M PO; +Vitamin D2000 UNIT PO; +ZADITOR5 M1 BOTHEYES
[2020-05-20 16:11] LABS: BASOPHILS ABSOLUTE AUTO 0.04 K/mm3 (0.00-0.23); BASOPHILS PERCENT AUTO 1 % (0-2); EOSINOPHILS ABSOLUTE AUTO 0.22 K/mm3 (0.00-0.68); EOSINOPHILS PERCENT AUTO 3 % (0-6); Hematocrit 40.8 % (37.0-53.0); Hemoglobin 13.9 g/dL (13.5-17.5); IMMATURE GRAN ABSOLUTE AUTO 0.08 K/mm3 (0.00-0.10); IMMATURE GRAN PERCENT AUTO 1 % (0-1); LYMPHOCYTES ABSOLUTE AUTO 0.91 K/mm3 (0.84-5.20); LYMPHOCYTES PERCENT AUTO 13 % (21-46); MONOCYTES ABSOLUTE AUTO 0.87 K/mm3 (0.16-1.47); MONOCYTES PERCENT AUTO 12 % (4-13); Mean Corpuscular HGB 28.9 pg (26.0-34.0); Mean Corpuscular HGB Conc 34.1 g/dL (31.5-36.5); Mean Corpuscular Volume 85 fL (80-100); Mean Platelet Volume 9.5 fL (9.1-12.4); NEUTROPHILS ABSOLUTE AUTO 4.91 K/mm3 (1.96-9.15); NEUTROPHILS PERCENT AUTO 70 % (41-73); Platelet Count 275 K/mm3 (150-400); RDW Coefficient Variation 13.2 % (11.7-14.2); Red Blood Cell Count 4.81 M/mm3 (4.30-5.90); White Blood Cell Count 7.03 K/mm3 (4.00-11.30)
[2020-05-20] MEDS ORDERED: METO5A PO (16:18)
[2020-05-20 16:29] LABS: Alanine Aminotransfer (ALT/SGP 48 U/L (12-78); Albumin, Blood 2.6 g/dL (3.4-5.0); Albumin/Globulin Ratio 0.7 (0.8-1.8); Alk Phos 76 U/L (50-136); Anion Gap 7 mmol/L (6-16); Aspartate Aminotrans (AST/SGOT 24 U/L (12-37); Bilirubin, Total 0.3 mg/dL (0.1-1.0); Blood Urea Nitrogen 16 mg/dL (8-24); Bun/Creatinine Ratio 13.7 (12.0-20.0); CO2, Blood 26 mmol/L (21-32); Calcium, Blood 8.7 mg/dL (8.5-10.1); Chloride, Blood 91 mmol/L (98-108); Creatinine, Blood 1.17 mg/dL (0.60-1.20); Globulin, Blood 3.8 g/dL (2.2-4.0); Glomerular Filtration Rate >60 (60-); Glucose, Blood 131 mg/dL (70-99); Sodium, Blood 124 mmol/L (136-145); Total Protein, Blood 6.4 g/dL (6.4-8.2)
[2020-05-20 18:31] LABS: International Normalized Ratio 1.33
== END 2020-05-20 19:35 | disposition home or self-care (01) ==
LOC: ER 15:36
PROVIDERS: Emergency Medicine
DX: E87.1 Hypo-osmolality and hyponatremia (principal); I95.9 Hypotension, unspecified; I10 Essential (primary) hypertension; E03.9 Hypothyroidism, unspecified; E78.5 Hyperlipidemia, unspecified; K21.9 Gastro-esophageal reflux disease without esophagitis; Z88.8 Allergy status to other drugs, medicaments and biological substances; Z88.5 Allergy status to narcotic agent; Z79.01 Long term (current) use of anticoagulants; Z79.899 Other long term (current) drug therapy; Z86.718 Personal history of other venous thrombosis and embolism
CPT/HCPCS: 36415; 80053; 85025; 85610; 85730; 93005; 93010; 99284-25; J7030

== ENCOUNTER 2020-05-25 22:00 | Inpatient (IN) | payer MEDICARE ==
[~2020-05-25] VITALS: Ht 172.7 cm; Wt 108.0 kg
[~2020-05-25 22:00] MED LIST changes: +METO5A PO
[2020-05-25 22:30] LABS: Calcium, Ionized (POC) 1.03 mmol/L (1.10-1.46); Chloride (POC) 79 mmol/L (98-108); Creatinine (POC) 1.5 mg/dL (0.8-1.3); Glucose (ISTAT POC) 124 mg/dL (70-99); Hemoglobin (POC) 14.6 g/dL (13.5-17.5); Potassium (POC) 3.7 mmol/L (3.5-5.5); Sodium (POC) 110 mmol/L (135-148); Total CO2 (POC) 19 mmol/L (21-32)
[2020-05-25 22:34] LABS: BASOPHILS ABSOLUTE AUTO 0.01 K/mm3 (0.00-0.23); BASOPHILS PERCENT AUTO 0 % (0-2); EOSINOPHILS ABSOLUTE AUTO 0.03 K/mm3 (0.00-0.68); EOSINOPHILS PERCENT AUTO 1 % (0-6); Hematocrit 38.9 % (37.0-53.0); Hemoglobin 13.9 g/dL (13.5-17.5); IMMATURE GRAN ABSOLUTE AUTO 0.05 K/mm3 (0.00-0.10); IMMATURE GRAN PERCENT AUTO 1 % (0-1); LYMPHOCYTES ABSOLUTE AUTO 0.55 K/mm3 (0.84-5.20); LYMPHOCYTES PERCENT AUTO 10 % (21-46); MONOCYTES ABSOLUTE AUTO 0.41 K/mm3 (0.16-1.47); MONOCYTES PERCENT AUTO 8 % (4-13); Mean Corpuscular HGB 29.1 pg (26.0-34.0); Mean Corpuscular HGB Conc 35.7 g/dL (31.5-36.5); Mean Corpuscular Volume 82 fL (80-100); Mean Platelet Volume 9.1 fL (9.1-12.4); NEUTROPHILS ABSOLUTE AUTO 4.36 K/mm3 (1.96-9.15); NEUTROPHILS PERCENT AUTO 81 % (41-73); Platelet Count 394 K/mm3 (150-400); RDW Coefficient Variation 12.8 % (11.7-14.2); RDW Standard Deviation 37.9 fL (35.1-46.3); Red Blood Cell Count 4.77 M/mm3 (4.30-5.90); White Blood Cell Count 5.41 K/mm3 (4.00-11.30)
[2020-05-25 22:48] LABS: International Normalized Ratio 1.46; Prothrombin Time Results 15.3 Sec (9.7-11.5)
[2020-05-25 22:50] LABS: Ethanol (Alcohol), Blood, Med <3 mg/dL; Troponin I <0.015 ng/mL (0.000-0.040)
[2020-05-25 22:57] LABS: Source, Urine Catheter
[2020-05-25 23:00] LABS: Alanine Aminotransfer (ALT/SGP 38 U/L (12-78); Albumin, Blood 2.7 g/dL (3.4-5.0); Albumin/Globulin Ratio 0.8 (0.8-1.8); Alk Phos 81 U/L (50-136); Anion Gap 12 mmol/L (6-16); Aspartate Aminotrans (AST/SGOT 14 U/L (12-37); Bilirubin, Total 0.7 mg/dL (0.1-1.0); Blood Urea Nitrogen 16 mg/dL (8-24); Bun/Creatinine Ratio 11.9 (12.0-20.0); CO2, Blood 22 mmol/L (21-32); Calcium, Blood 8.4 mg/dL (8.5-10.1); Chloride, Blood 80 mmol/L (98-108); Creatinine, Blood 1.34 mg/dL (0.60-1.20); Globulin, Blood 3.5 g/dL (2.2-4.0); Glomerular Filtration Rate 55 (60-); Glucose, Blood 123 mg/dL (70-99); Potassium, Blood 3.6 mmol/L (3.5-5.5); Sodium, Blood 114 mmol/L (136-145); Total Protein, Blood 6.2 g/dL (6.4-8.2)
[2020-05-25 23:09] LABS: Appearance, Urine Clear (Clear); Bilirubin, Urine Neg (Neg); Blood, Urine 1+ (Neg); Color, Urine Yellow (P-Yellow); Glucose Qualitative, Urine Neg (Neg); Ketones, Urine Neg (Neg); Leukocyte Esterase, Urine 1+ (Neg); Nitrite, Urine Neg (Neg); Protein, Urine 1+ (Neg); Specific Gravity, Urine 1.015 (1.003-1.022); Urobilinogen, Urine NORM (Normal)
[2020-05-25 23:18] LABS: Bacteria Few /hpf; Squamous Epithelial Cells Few /hpf (Few)
[2020-05-25 23:20] LABS: U Amphetamine Screen Not Detected; U Barbituate Screen Not Detected; U Benzodiazapine Screen Not Detected; U Buprenorphine Screen Not Detected; U Cannabinoids Screen Not Detected; U Cocaine Screen Not Detected; U Methadone Screen Not Detected; U Methamphetamine Screen Not Detected; U Opiates Screen DETECTED; U Oxycodone Screen Not Detected; U Phencyclidine Screen Not Detected; U Propoxyphene Screen Not Detected
[2020-05-26 00:11] LABS: Influenza A, PCR Negative (NEGATIVE); Influenza B, PCR Negative (NEGATIVE); Resp Syncytial Virus, PCR Negative (NEGATIVE); SARS-Cov-2 (COVID-19) PCR, MMC Negative (NEGATIVE)
[2020-05-26 01:35] LABS: Magnesium, Blood 1.3 mg/dL (1.6-2.4)
[2020-05-26 01:44] LABS: Anion Gap 10 mmol/L (6-16); Blood Urea Nitrogen 14 mg/dL (8-24); Bun/Creatinine Ratio 12.8 (12.0-20.0); CO2, Blood 23 mmol/L (21-32); Calcium, Blood 8.1 mg/dL (8.5-10.1); Chloride, Blood 85 mmol/L (98-108); Creatinine, Blood 1.09 mg/dL (0.60-1.20); Glomerular Filtration Rate >60 (60-); Glucose, Blood 127 mg/dL (70-99); Phosphorus, Blood 2.9 mg/dL (2.5-4.9); Sodium, Blood 118 mmol/L (136-145)
[2020-05-26 02:36] LABS: PCO2 Arterial 28.1 mmHg (35-45); PO2 Arterial 84.9 mmHg (80-100); pH Blood Arterial 7.37 (7.35-7.45)
[2020-05-26 02:44] LABS: PCO2 Arterial 34.8 mmHg (35-45); PO2 Arterial 68.6 mmHg (80-100); pH Blood Arterial 7.39 (7.35-7.45)
[2020-05-26 04:53] LABS: BASOPHILS ABSOLUTE AUTO 0.01 K/mm3 (0.00-0.23); BASOPHILS PERCENT AUTO 1 % (0-2); EOSINOPHILS ABSOLUTE AUTO 0.03 K/mm3 (0.00-0.68); EOSINOPHILS PERCENT AUTO 1 % (0-6); Hematocrit 34.7 % (37.0-53.0); Hemoglobin 12.2 g/dL (13.5-17.5); IMMATURE GRAN ABSOLUTE AUTO 0.03 K/mm3 (0.00-0.10); IMMATURE GRAN PERCENT AUTO 1 % (0-1); LYMPHOCYTES ABSOLUTE AUTO 0.45 K/mm3 (0.84-5.20); LYMPHOCYTES PERCENT AUTO 21 % (21-46); MONOCYTES ABSOLUTE AUTO 0.18 K/mm3 (0.16-1.47); MONOCYTES PERCENT AUTO 8 % (4-13); Mean Corpuscular HGB 29.4 pg (26.0-34.0); Mean Corpuscular HGB Conc 35.2 g/dL (31.5-36.5); Mean Corpuscular Volume 84 fL (80-100); Mean Platelet Volume 8.8 fL (9.1-12.4); NEUTROPHILS ABSOLUTE AUTO 1.49 K/mm3 (1.96-9.15); NEUTROPHILS PERCENT AUTO 68 % (41-73); Platelet Count 344 K/mm3 (150-400); RDW Standard Deviation 39.4 fL (35.1-46.3); Red Blood Cell Count 4.15 M/mm3 (4.30-5.90); White Blood Cell Count 2.19 K/mm3 (4.00-11.30)
--- NOTE | 2020-05-26 05:00 | NUR ---
ASSUMED PT CARE AT 0045 PT ARRIVED FROM ED INTUBATED AND SEDATED. PROPOFOL AT 30MCG/KG/MIN. PT ABLE TO OPEN EYES UPON VERBAL STIMULI. PT NOTED TO BE SINUS TACHYCARDIA WITH HR 130'S; SBP >200. HOWEVER, ONCE PT WAS SETTED, BP'S STARTED TO TREND DOWN TO MAPS <65. THEREFORE, CALL OUT TO DEX MONDRAGON REGARDING CULTURES X2 AND FLUID BOLUSES; ORDERS OBTAINED FOR 2L OF NS BOLUS, AND LEVOPHED. CONSULT CALLED TO DR. HAWK AROUND 0230 D/T LABILE VSS AND INCREASING OXYGENATION NEEDS. VENT SETTINGS UPON ASSUMPTION OF CARE WERE: AC 16, VT 570, PEEP 5, FIO2 50%; HOWEVER, SHORTLY AFTER GETTING PT SETTLED INTO ICU SPO2 NOTED TO DROP BETWEEN 80-85%; THEREFORE, RT AT BEDSIDE MANAGING ADJUSTMENTS OF VENTILATOR. EVENTUALLY PT ENDED UP ON A PEEP OF 14 AND FIO2 100%. ATTEMPTED TO REPOSITION PT TO HIS RIGHT SIDE WITH SUCCESS IN OXYGENATION STATUS; PEEP ABLE TO BE DECREASED TO [address]IO2 90%. DR. HAKW ORDERED A STAT ABG, AND ABDOMINAL XRAY, WELL VASOPRESSIN, FENTANYL 50MCG NOW AND 50-100MCG Q1HR FOR PAIN. PT CONTINUED TO HAVE LABILE BP'S, SEE FLOWSHEET. WHEN BOLUSES WERE BEING INFUSED, PRESSOR REQUIREMENTS WERE NOT VERY HIGH; HOWEVER, ONCE BOLUES WERE COMPLETED, PT'S BP'S DROPPED SIGNIFICANTLY; SEE IVY RN'S NOTE REGARDING DECREASE IN BP AND ST ELEVATION WHILE I WAS UNAVAILABLE IN AN ISOLATION ROOM. FURTHERMORE, DR. HAWK WAS CALLED AGAIN REGARDING ST ELEVATION WITH LOW BP'S WITH FURTHER ORDERS FOR A STAT EKG, STAT ECHO, HYDROCORTISONE 100G IV Q8HRS AND AND ONE TIME DOSE NOW, WELL ORDERS FOR AN EPI GTT. SEE FLOWSHEET FOR TITRATIONS. WAS INITALLY AT BEDSIDE AT TIME CARE WAS ASSUMED, BUT HAD GONE HOME FOR THE NIGHT. HOWEVER, PT CONTNIUED TO DECLINE I CALLED HER IN REGARDS TO CODE STATUS AND IF THE PT WOULD WANT CPR IF IT CAME TO THAT. WAS ADAMENT THAT PT WOULD NOT WANT CPR IF HIS HEART WAS TO STOP; CALLED AND NOTIFIED DR. HAWK. FURTHERMORE, PT HAS COPIOUS AMOUNTS 500CC, OF BRIGHT YELLOW BILE/FORMULA NOTED IN SUCTION CANISTER FROM OG. BARBOZA CATHETER PATENT AND DRAINING PARESH CLEAR URINE TO GRAVITY. MOISTURE ASSOCIATED SKIN DAMAGE NOTED TO BUTTOCKS REGION. BILATERAL FEET ARE RED/PURPLE, COLD TO THE TOUCH WITH CAPILLARY REFILL >3SEC. RED RASH ALSO NOTED TO BILATERAL FEET IN WHICH STATED HE WAS BEING TREATED FOR ATHLETES FOOT. PEG TUBE HAS DRESSING THAT IS CDI AND CLAMPED. STATED AT HOME THEY WERE DOING JEVITY TUBE FEEDS, BUT HAD SWITCHED TO ENSURE PLUS UNTIL THE SUPPLIER COULD DELIVER HIS NEW TUBE FEEDS IN ORDER TO DECREASE HIS DIARRHEA EPISODES. CURRENT GTTS AT TIME OF SHIFT CHANGE; PROPOFOL 30MCG/KG/MIN, LEVOPHED AT 30MCG/MIN, VASOPRESSIN 0.04 UNITS/MIN, EPI AT 5MCG/MIN, NS AT 75MLS/HR, AND POTASSIUM, CALCIUM GLUCONATE, AND MAGNESIUM ALL BEING REPLACED. REPORT HANDED OFF TO NADIRA CERNA.
[2020-05-26 05:10] LABS: Bun/Creatinine Ratio 10.7 (12.0-20.0); Creatinine, Blood 1.31 mg/dL (0.60-1.20); Potassium, Blood 3.7 mmol/L (3.5-5.5)
--- NOTE | 2020-05-26 05:14 | NUR ---
AT APPROX 0400 TO 0425 THIS AM, PT WAS NOTED TO HAVE SIGNIFICANTLY LOW BP 41/15. PRIMARY RN EMMA WAS IN AN ISOLATION ROOM AND WAS NOT ABLE TO GET TO PT IN SHORT MANNER. UPON ARRIVAL TO ROOM, PT'S PROPOFOL WAS PLACED ON HOLD. NORMAL SALINE BOLUS INITIATED. LEVOPHED WAS AT 10 MCG'S AND THIS INCREASED TO 20 MCG AND THEN SUBSEQUENTLY TO 30 MCG'S. SEE VSS FLOWSHEET FOR DETAILS. BLOOD PRESSURES IMPROVED. DURING HYPOTENSIVE MOMENT, DID NOTICE ST ELEVATION IN LEAD II, III, AND AVF. AFTER BLOOD PRESSURES RETURN WITH MAP > 65 ST ELEVATION DECREASED. UPDATE GIVEN TO PRIMARY RN, AND SHE RESUMED CARE.
--- NOTE | 2020-05-26 06:21 | NUR ---
Stat echo performed and given to Dr. Juarez for stat overead.
--- NOTE | 2020-05-26 09:03 | NUR ---
ASSUMED CARE OF PT AT 0700. BEDSIDE REPORT FROM EMMA WADDELL. PT INTUBATED AND SEDATED. VENT SETTINGS CURRENTLY AC 16/570/10/60%. PROPOFOL GTT 30 MCG/KG/MIN. PT NON RESPONSIVE TO VERBAL OR PAINFUL STIMULI. LUNGS COARSE THROUGHOUT. THICK CAMPOS SECRETIONS THROUGH ETT. ABD ROUND, SOFT, NON TENDER. BT X 4. PEG TUBE CLAMPED. OGT TO LIS. WILL ADVANCE 7 CM PER ABD XRAY. RIGHT SUBCLAVIAN CENTRAL LINE IN PLACE. DRESSING C/D/I. LEVOPHED GTT 30 MCG/MIN, VASOPRESSIN 0.04 UNIT/MIN, EPINEPHRINE GTT 5 MCG/MIN. WILL TITRATE FOR MAP>65. POTASSIUM INFUSING, CA GLUCONATE COMPLETE. BARBOZA PATENT, DRAINING PARESH URINE TO GRAVITY. BILATERAL FEET COOL, DISCOLORED. PULSE BY DOPPLER. WILL CONTINUE TO MONITOR.
--- NOTE | 2020-05-26 10:00 | NUR ---
SEDATION VACATION PROPOFOL GTT DECREASED TO 20 MCG/KG/MIN, PT BECAME TACHYPNEIC, USING ACCESSORY MUSCLES TO BREATH. INCREASE IN PEAK PRESSURES, INCREASED COUGH. DR HAWK NOTIFIED. PROPOFOL INCREASED TO 30 MCG/KG/MIN.
[2020-05-26 12:39] LABS: Magnesium, Blood 1.6 mg/dL (1.6-2.4)
[2020-05-26 12:46] LABS: Calcium, Blood 8.1 mg/dL (8.5-10.1); Phosphorus, Blood 2.4 mg/dL (2.5-4.9); Potassium, Blood 3.7 mmol/L (3.5-5.5)
--- NOTE | 2020-05-26 17:15 | NUR ---
SHIFT SUMMARY PT REMAINS INTUBATED AND SEDATED. VENT SETTINGS AC 16/570/10/45%. PROPOFOL GTT 30 MCG/KG/MIN. PT c COUGH/GAG REFLEX. DOES NOT RESPOND TO PAINFUL STIMULI. LUNGS CONTINUE TO BE COARSE THROUGHOUT. SMALL AMOUNT OF THICK CAMPOS/YELLOW SECRETIONS THROUGH ETT. ABD ROUND, SOFT NON TENDER. BT X 4. DRESSING TO PEG TUBE PLACED. OGT TO LIS, SCANT EMESIS OUT. ADVANCED 7 CM THIS SHIFT. PRESSORS TITRATED DOWN THIS SHIFT. LEVOPHED GTT 16 MCG/MIN, VASOPRESSIN 0.04 UNIT/MIN, EPINEPHRINE 5 MCG/MIN. MAP>65. SR, RATE 70'S. HEPARIN GTT STARTED THIS SHIFT, 13 UNITS/KG/HR, RATE 21.8 ML/HR. POWERGLIDE PLACED TO LUE, DRESSING C/D/I. CENTRAL LINE TO RIGHT SUBCLAVIAN. BARBOZA PATENT, DRAINING 450 ML CLEAR YELLOW URINE TO GRAVITY. WILL CONTINUE TO MONITOR UNTIL REPORT TO ONCOMING NURSE.
--- NOTE | 2020-05-26 19:12 | NUR ---
ASSESSMENT/ASSUMED CARE PT INTUBATED AND ON [facility] VENT. NOT RESPONDING TO PAINFUL STIMULI. LUNGS CLEAR BUT DECREASED THROUGHOUT. VENT SETTINGS AC 16 TV 570 PEEP 10 FIO2 40%. HEART RATE REGULAR IN THE 80'S. BP STABLE. TRACE EDEMA TO UPPER EXT AND BILAT LOWER EXT. PT ON EPI GTT DOUBLE STRENGTH AT 4 MCQ/MIN, LEVOPHED DOUBLE STRENGTH AT 14 MCQ/MIN AND VASOPRESSIN AT 0.04 UNITS/MIN TO MAINTAINE MAP >65. BT+ HYPOACTIVE. OG TO LIS WITH YELLOW DRAINAGE. PEG TUBE CLAMPED, SITE CLEAR AND DRSG INTACT. ABD ROUND, OBESE, AND SOFT. BARBOZA CATH PATENT DRAINING YELLOW URINE. CENTRAL LINE TO RIGHT IJ, SITE CLEAR, DRSG INTACT. PROPOFOL AT 30 MCQ/KG/MIN, HEPARIN AT 13 UNITS/KG/HR, NS X2 AT 10 ML/HR, EPI, LEVOPHED AND VASOPRESSIN STATED ABOVE. POWER GLIDE TO LEFT UPPER ARM CLAMPED, DRSG INTACT. SITE CLEAR, FLUSHED WITHOUT DIFFICULTY. BILAT LOWER EXT DISCOLORED. DOPPLER PULSES.
--- NOTE | 2020-05-26 21:46 | NUR ---
BED BATH BED BATH AND LINEN CHANGE COMPLETE. BLEEDING NOTED FROM MEATUS. RYANNE CARE DONE AND STATLOCK FOR BARBOZA REPLACED. PT REPOSITIONED AFTER BED BATH.
[2020-05-27 03:58] LABS: Hematocrit 31.2 % (37.0-53.0); Hemoglobin 11.3 g/dL (13.5-17.5); Mean Corpuscular HGB 29.4 pg (26.0-34.0); Mean Corpuscular HGB Conc 36.2 g/dL (31.5-36.5); Mean Corpuscular Volume 81 fL (80-100); Mean Platelet Volume 9.2 fL (9.1-12.4); Platelet Count 286 K/mm3 (150-400); RDW Standard Deviation 38.4 fL (35.1-46.3); Red Blood Cell Count 3.84 M/mm3 (4.30-5.90); White Blood Cell Count 15.08 K/mm3 (4.00-11.30)
[2020-05-27 04:01] LABS: Base Excess Venous -11.4 mmol/L; Bicarbonate Venous 16.4 mmol/L (24.0-30.0); PCO2 Venous 27.8 mmHg (38-42); PO2 Venous 57.8 mmHg (38-42); pH Blood Venous 7.33 (7.34-7.37)
[2020-05-27 04:16] LABS: BAND PERCENT MAN 38 % (0-8); BASOPHILS PERCENT MAN 0 % (0-2); EOSINOPHILS PERCENT MAN 0 % (0-6); LYMPHOCYTES PERCENT MAN 2 % (21-46); METAMYELOCYTE ABSOLUTE MAN 1.05 K/mm3 (0.00-0.00); METAMYELOCYTE PERCENT MAN 7 % (0-0); MONOCYTES PERCENT MAN 6 % (4-13); MYELOCYTE ABSOLUTE MAN 0.15 K/mm3 (0.00-0.00); MYELOCYTE PERCENT MAN 1 % (0-0); NEUTROPHILS ABSOLUTE MAN 12.66 K/mm3 (1.96-9.15); SEG NEUTROPHILS PERCENT MAN 46 % (41-73); TOTAL CELLS COUNTED 100
[2020-05-27 04:17] LABS: Magnesium, Blood 1.5 mg/dL (1.6-2.4); Troponin I <0.015 ng/mL (0.000-0.040)
[2020-05-27 04:27] LABS: Anion Gap 13 mmol/L (6-16); Blood Urea Nitrogen 16 mg/dL (8-24); Bun/Creatinine Ratio 14.4 (12.0-20.0); CO2, Blood 16 mmol/L (21-32); Calcium, Blood 7.8 mg/dL (8.5-10.1); Chloride, Blood 86 mmol/L (98-108); Creatinine, Blood 1.11 mg/dL (0.60-1.20); Glomerular Filtration Rate >60 (60-); Glucose, Blood 182 mg/dL (70-99); Potassium, Blood 4.8 mmol/L (3.5-5.5); Sodium, Blood 115 mmol/L (136-145)
--- NOTE | 2020-05-27 04:51 | NUR ---
SEDATION VACATION PROPOFOL DOWN TO 15 MCQ/KG/MIN.
--- NOTE | 2020-05-27 05:51 | NUR ---
SHIFT SUMMARY PT CONT ON [facility] VENT. VENT SETTINGS CHANGED DURING THE NIGHT. CURRENT VENT SETTINGS AC 16 TV 570 PEEP DOWN TO 5 FIO2 DOWN TO 30%. LUNGS CONT CLEAR BUT DECREASED. SUCTIONING SMALL AMT YELLOW FROM ET TUBE. HEART RATE CONT 70-80'S. BP STABLE. TITRATED EPI GTT TO OFF, AND LEVOPHED FROM 14 MCQ/MIN TO 4 MCQ/MIN. CONT WITH VASOPRESSIN AT 0.04 UNITS/MIN, WILL TITRATE TO OFF IF MAP CONT >65. PEG TUBE REMAINS CLAMPED. OG WITH MIN OUTPUT OF YELLOW BILE. BARBOZA CATH PATENT AND DRAINING YELLOW URINE. URINE NA AND OSMOLALITY SENT THIS AM ALONG WITH SERUM OSMOLALITY AFTER TALKING WITH DR HAWK. CALLED CRITICAL NA TO DR HAWK, NO NEW ORDER AT THIS TIME. MAG 2GM INFUSING FOR MAG OF 1.5. PROPOFOL DECREASED DOWN TO 15 MCQ/KG/MIN, PT CONT TO BE NONRESPONSIVE. INCREASED PEAK PRESSURE, USE OF ACCESSORY MUSCLES AND INCREASED COUGH NOTED AFTER DECREASING PROPOFOL TO 15 MCQ/KG/MIN BUT RESLOVED AFTER A COUPLE OF MIN. HEPARIN GTT DOWN TO 12 UNITS/KG/HR, WILL REDRAW PTT AT 0700. REPORT TO ON COMING NURSE.
--- NOTE | 2020-05-27 07:30 | NUR ---
ASSUMED CARE OF PT AT 0700. BEDSIDE REPORT FROM CHAYITO WADDELL. PT INTUBATED AND SEDATED. VENT SETTINGS AC 16/570/5/30%, PROPOFOL GTT 15 MCG/KG/MIN. PT GRIMACES TO ORAL CARE. COUGH/GAG REFLEX PRESENT. DOES NOT FOLLOW COMMANDS. SCANT THICK YELLOW SECRETIONS THROUGH ETT. LUNGS DIMINISHED IN BASES. ABD ROUND, SOFT, NON TENDER. BT X 4. OGT TO LIS, SCANT EMESIS IN TUBING. PEG TUBE IN PLACE, DRESSING C/D/I. BARBOZA PATENT, DRAINING CLEAR YELLOW URINE TO GRAVITY. COLOR TO FEET IMPROVED SINCE YESTERDAY, PINK, WARM. CAP REFILL>3 SEC. 1+ EDEMA TO BILATERAL FEET. CENTRAL LINE TO RIGHT SUBCLAVIAN, DRESSING C/D/I. POWERGLIDE TO LUE, DRESSING C/D/I. VASOPRESSIN ON STANDBY, LEVO GTT 4 MCG/MIN. HEPARIN GTT 12 UNITS/KG/HR. WILL CONTINUE TO MONITOR.
--- NOTE | 2020-05-27 09:24 | NUR ---
DR MYKEL HOGUE CONSULTED. 3% NS ORDERED, STARTED INFUSION AT 35 ML/HR. PLAN TO DRAW LABS 2HR p START OF INFUSION. VERIFIED mamie GOMEZ RN.
--- NOTE | 2020-05-27 11:00 | NUR ---
SEDATION VACATION PROPOFOL PLACED ON STANDBY FOR APPROX 1 HOUR. PT ABLE TO FOLLOW SIMPLE COMMANDS, OPEN EYES, SQUEEZE HANDS BILATERALLY AND WIGGLE TOES. UNABLE TO NOD YES/NO TO QUESTIONS. PT BEGAN COUGHING, INCREASED RR. PROPOFOL RESTARTED AT 15 MCG/KG/MIN.
[2020-05-27 12:01] LABS: Thyroid Stimulating Hormone 2.43 uIU/mL (0.360-4.800); Uric Acid, Blood 3.4 mg/dL (3.5-7.2)
--- NOTE | 2020-05-27 17:38 | NUR ---
SHIFT SUMMARY PT REMAINS INTUBATED AND SEDATED. VENT SETTINGS AC 16/570/5/30%. PROPOFOL GTT 15 MCG/KG/MIN. SEE SEDATION VACATION NOTE FOR NEURO ASSESSMENT. LUNGS CLEAR, DIMINISHED IN BASES. SCANT SECRETIONS THROUGH ETT. TUBE FEEDINGS STARTED THROUGH PEG TUBE THIS SHIFT. FLUSHES s DIFFICULTY. PIVOT 1.5 AT 15 ML/HR c 30 ML FLUSHES q4 HR. NO RESIDUALS THROUGH OGT. OGT CLAMPED. DR OHGUE CONSULTED. 3% NS INFUSED FOR PARTIAL SHIFT. CURRENTLY ON STANDBY PENDING NA AT 1800, WILL CALL RESULTS TO MKYEL. PT DIURESED. BARBOZA PATENT, DRAINING TO GRAVITY, 3550 ML CLEAR YELLOW URINE OUT. LEVO GTT CONTINUES FOR MAP>65, VASOPRESSIN D/C'D. HEPARIN GTT 11 UNITS/KG/MIN. VANCO D/C'D. MAG AND CA REPLACED. CENTRAL LINE REMAINS IN PLACE, DRESSING CHANGED. POWERGLIDE TO LUE, DRESSING C/D/I. WILL CONTINUE TO MONITOR UNTIL REPORT TO ONCOMING NURSE.
--- NOTE | 2020-05-27 19:15 | NUR ---
ASSESSMENT/ASSUMED CARE PT CONT INTUBATED AND ON [facility] VENT. CURRENT VENT SETTINGS AC 16 TV 570 PEEP 5 FIO2 30%. LUNGS COARSE UNTIL SUCTIONED THAN CLEAR AND DECREASED. SUCTIONED MODERATE AMT CREAM COLORED VIA ET TUBE AFTER REPOSITIONING. HEART RATE REGULAR. BP STABLE ON LEVOPHED AT 5 MCQ/MIN. TITRATE TO KEEP MAP >65. EDEMA TO BILAT LOWER EXT. BT+ HYPOACTIVE. ABD ROUND, OBESE, AND SOFT. OG CLAMPED, ZERO RESIDUAL VIA OG. PEG TUBE TO LUQ WITH PIVOT 1.5 AT GOAL RATE 15 ML/HR AND 30 ML WATER Q4HR, RESIDUAL 65 ML REFED. BARBOZA CATH PATENT DRAINING CLEAR YELLOW URINE. CENTRAL LINE TO RIGHT IJ, SITE CLEAR, DRSG INTACT. HEPARIN AT 11 UNITS/KG/HR, NS AT 10 ML/HR X2, PROPOFOL AT 15 MCQ/KG/MIN, 3% NA ON STANDBY, AND LEVOPHED AT 5 MCQ/MIN. POWER GLIDE TO LEFT UPPER ARM, SITE CLEAR, DRSG INTACT. IV 20G TO RIGHT WRIST SALINE LOCKED, FLUSHED WITHOUT DIFFICULTY. BILAT FEET RED RASH NOTED. PT REPOSITIONED TO RIGHT WITH HOB UP. BILAT SOFT WRIST RESTRAINTS ON. LINEN CHANGE DONE AND BACK WASHED. RT TO ROOM FOR VENT CHECK.
[2020-05-27 21:17] LABS: Potassium, Blood 3.7 mmol/L (3.5-5.5)
--- NOTE | 2020-05-27 21:47 | NUR ---
LABS NA AND K CALLED TO DR HOGUE. NO NEW ORDERS.
[2020-05-28 03:14] LABS: Hematocrit 27.2 % (37.0-53.0); Hemoglobin 9.8 g/dL (13.5-17.5); Mean Corpuscular HGB 29.3 pg (26.0-34.0); Mean Corpuscular Volume 81 fL (80-100); Mean Platelet Volume 9.3 fL (9.1-12.4); Platelet Count 259 K/mm3 (150-400); RDW Coefficient Variation 13.5 % (11.7-14.2); RDW Standard Deviation 40.2 fL (35.1-46.3); Red Blood Cell Count 3.34 M/mm3 (4.30-5.90); White Blood Cell Count 24.06 K/mm3 (4.00-11.30)
[2020-05-28 03:30] LABS: Anion Gap 10 mmol/L (6-16); Blood Urea Nitrogen 17 mg/dL (8-24); Bun/Creatinine Ratio 16.2 (12.0-20.0); CO2, Blood 22 mmol/L (21-32); Calcium, Blood 8.4 mg/dL (8.5-10.1); Chloride, Blood 94 mmol/L (98-108); Creatinine, Blood 1.05 mg/dL (0.60-1.20); Glomerular Filtration Rate >60 (60-); Glucose, Blood 135 mg/dL (70-99); Magnesium, Blood 2.2 mg/dL (1.6-2.4); Phosphorus, Blood 2.4 mg/dL (2.5-4.9); Potassium, Blood 3.6 mmol/L (3.5-5.5); Sodium, Blood 126 mmol/L (136-145)
[2020-05-28 03:39] LABS: BAND PERCENT MAN 33 % (0-8); BASOPHILS PERCENT MAN 0 % (0-2); EOSINOPHILS PERCENT MAN 0 % (0-6); LYMPHOCYTES ABSOLUTE MAN 0.24 K/mm3 (0.84-5.20); LYMPHOCYTES PERCENT MAN 1 % (21-46); METAMYELOCYTE ABSOLUTE MAN 0.24 K/mm3 (0.00-0.00); METAMYELOCYTE PERCENT MAN 1 % (0-0); MONOCYTES ABSOLUTE MAN 1.44 K/mm3 (0.16-1.47); MONOCYTES PERCENT MAN 6 % (4-13); NEUTROPHILS ABSOLUTE MAN 22.13 K/mm3 (1.96-9.15); SEG NEUTROPHILS PERCENT MAN 59 % (41-73); TOTAL CELLS COUNTED 100
--- NOTE | 2020-05-28 05:00 | NUR ---
SEDATION VACATION/WEANING PROPOFOL TURNED OFF. PT WAKING UP TO VERBAL STIMULI. FOLLOWING SMIPLE INSTRUCTUONS LIKE OPENS EYES, AND ENTRY LEVEL PARALEGAL HANDS. MOVING ALL EXT BUT LEFT WEAKER THAN RIGHT. WEANING DONE. PT PLACED BACK ON AC AND SEDATION RESTARTED. LEVOPHED PLACED ON STANDBY DURING WEANING DUE TO INCREASED BP.
--- NOTE | 2020-05-28 05:38 | NUR ---
SHIFT SUMMARY PT CONT INTUBATED AND ON [facility]. WEANING DONE THIS AM. LUNGS COARSE UNTIL SUCTIONED THAN CLEAR DECREASED IN THE BASES. SUCTIONED MODERATE TO LARGE AMT VIA ET TUBE. CURRENT VENT SETTINGS AC 16 TV 570 PEEP 5 FIO2 25%. LEVOPHED STOPPED DURING WEANING BUT RESTARTED AFTER PT RESEDATED. HEART RATE REGULAR. BP STABLE ON LEVOPHED AT 4 MCQ/MIN. TITRATED DOWN FROM 5 MCQ/MIN. BT+ ABD ROUND AND SOFT. TUBE FEED VIA PEG TUBE PIVOT 1.5 AT GOAL OF 15 ML/HR. RESIDUAL VIA OG ZERO, RESIDUAL VIA PEG TUBE 40-70. NO STOOL DURING THE NIGHT. BARBOZA CATH PATENT DRAINING CLEAR YELLOW, WITH 2290 ML URINE OUT FOR THE NIGHT. CENTRAL LINE TO RIGHT IJ WITH DRSG INTACT, SITE CLEAR. POWER GLIDE TO LEFT UPPER ARM WITH DRSG INTACT AND SITE CLEAR. TURNING PT Q2HR. BILAT SOFT RESTRAINTS ON. PHOS 2.4 THIS AM, PT RECEIVING KPHOS. NA UP TO 126. REPORT TO ON COMING NURSE
--- NOTE | 2020-05-28 06:23 | NUR ---
MD VISIT DR HOGUE TO SEE PT. UPDATE GIVE. REVIEWED LABS AND RECEIVED ORDERS FOR NA, K AND PHOS LAB DRAW AT NOON. ALSO ORDER FOR LASIX 20 MG IV NOW.
--- NOTE | 2020-05-28 08:00 | NUR ---
ASSUMED CARE BEDSIDE REPORT FROM CHAYITO WADDELL. PT INTUBATED AND SEDATED. VENT SETTINGS AC 16/570/5/25% PROPOFOL GTT 15 MCG/KG/MIN. PT RESPONSES TO PAINFUL STIMULI. COUGH/GAG REFLEX PRESENT. GRIMACES c CARE. LUNGS DIMINISHED IN BASES. SMALL AMOUNT OF THICK YELLOW SECRETIONS THROUGH ETT. TUBE FEEDS INFUSING VIA PEG TUBE. OGT CLAMPED. ABD ROUND, SOFT, NON TENDER. BT X 4. BARBOZA PATENT, DRAINING CLEAR YELLOW URINE TO GRAVITY. LEVOPHED GTT INFUSING VIA CENTRAL LINE TO RIGHT SUBCLAVIAN. DRESSING C/D/I. K PHOS INFUSING. HEPARIN GTT AT 11 UNIT/KG/HR. WILL CONTINUE TO MONITOR.
[2020-05-28 12:30] LABS: Phosphorus, Blood 2.6 mg/dL (2.5-4.9); Potassium, Blood 3.5 mmol/L (3.5-5.5)
--- NOTE | 2020-05-28 17:37 | NUR ---
SHIFT SUMMARY PT INTUBATED AND SEDATED. VENT SETTINGS SPONT 7/5 25%. PROPOFOL GTT 10 MCG/KG/MIN. PT WAKES c VERBAL STIMULI. ABLE TO FOLLOW SIMPLE COMMANDS WHEN SEDATION ON STANDBY. LUNGS CLEAR, DIMINISHED IN BASES. SMALL AMOUNT OF CLEAR SECRETIONS THROUGH ETT. TUBE FEEDS CHANGED TO VHP TODAY, INFUSING AT 25 ML/HR c 30 ML FLUSHES q4 HR. GOAL RATE OF 50 ML/HR. NO RESIDUALS FROM OGT. ABD SOFT, ROUND, NON TENDER. BT X 4. BARBOZA PATENT, 2400ML CLEAR YELLOW URINE OUT THIS SHIFT. LEVO GTT ON STANDBY. WILL CONTINUE TO MONITOR UNTIL REPORT TO ONCOMING NURSE.
[2020-05-28 18:32] LABS: Potassium, Blood 3.2 mmol/L (3.5-5.5)
--- NOTE | 2020-05-28 20:00 | NUR ---
ASSUMED CARE: PT INTUBATED AND ON LIGHT SEDATION. LUNGS CLEAR AND DIM IN BASES. SPONTANEOUS SETTINGS. 7/5/25%. IN SR. SBP IN THE 170S. OGT IN PLACE-CLAMPED. BT X4 BUT HYPOACTIVE. CONTINUOUS TF RUNNING THROUGH PEG TUBE. T BARBOZA IN PLACE. CL TO R SUBCLAVIAN, PG TO KATIANA. HEPARIN INFUSING AT 11U. PROPOFOL AT 10MCG, NS TKO. WILL CONTINUE TO MONITOR
--- NOTE | 2020-05-28 20:55 | NUR ---
TF INCREASED TO 40MLS/HR
[2020-05-29 02:59] LABS: Hematocrit 24.3 % (37.0-53.0); Hemoglobin 8.6 g/dL (13.5-17.5); Mean Corpuscular HGB 29.7 pg (26.0-34.0); Mean Corpuscular HGB Conc 35.4 g/dL (31.5-36.5); Mean Corpuscular Volume 84 fL (80-100); Mean Platelet Volume 9.5 fL (9.1-12.4); Platelet Count 203 K/mm3 (150-400); RDW Coefficient Variation 14.1 % (11.7-14.2); White Blood Cell Count 19.17 K/mm3 (4.00-11.30)
[2020-05-29 03:14] LABS: Albumin, Blood 2.5 g/dL (3.4-5.0); Anion Gap 7 mmol/L (6-16); Blood Urea Nitrogen 18 mg/dL (8-24); Bun/Creatinine Ratio 18.6 (12.0-20.0); CO2, Blood 26 mmol/L (21-32); Calcium, Blood 8.4 mg/dL (8.5-10.1); Chloride, Blood 102 mmol/L (98-108); Creatinine, Blood 0.97 mg/dL (0.60-1.20); Glomerular Filtration Rate >60 (60-); Glucose, Blood 93 mg/dL (70-99); Phosphorus, Blood 1.5 mg/dL (2.5-4.9); Potassium, Blood 3.1 mmol/L (3.5-5.5); Sodium, Blood 135 mmol/L (136-145)
[2020-05-29 03:17] LABS: International Normalized Ratio 1.56; Prothrombin Time Results 16.3 Sec (9.7-11.5)
[2020-05-29 03:27] LABS: BAND PERCENT MAN 16 % (0-8); BASOPHILS PERCENT MAN 0 % (0-2); EOSINOPHILS PERCENT MAN 0 % (0-6); LYMPHOCYTES ABSOLUTE MAN 0.95 K/mm3 (0.84-5.20); LYMPHOCYTES PERCENT MAN 5 % (21-46); MONOCYTES ABSOLUTE MAN 0.38 K/mm3 (0.16-1.47); MONOCYTES PERCENT MAN 2 % (4-13); NEUTROPHILS ABSOLUTE MAN 17.82 K/mm3 (1.96-9.15); SEG NEUTROPHILS PERCENT MAN 77 % (41-73); TOTAL CELLS COUNTED 100
--- NOTE | 2020-05-29 06:15 | NUR ---
SHIFT SUMMARY: ONLY ACUTE CHANGES WAS PT REQUIRED AN INCREASE IN PRESSURE SUPPORT. VENT SETTINGS ARE 10/5/25%. PT IS PRODUCING LARGE AMTS OF ORAL SECRETIONS. PT IS CURRENTLY HAVING K+ AND PHOS REPLACED. PER DR HOGUE GIVE 20MG IV LASIX AND THEN GIVE ANOTHER 10MEQ IV KCL. AWAITING CURRENT KCL BAG INFUSING TO BE FINISHED BEFORE GIVING LASIX. WILL PASS REPORT TO ONCOMING SHIFT
--- NOTE | 2020-05-29 08:10 | NUR ---
INITIAL ASSESSMENT PATIENT INTUBATED AND ON SEDATION. PATIENT FOLLOWING SOME SIMPLE COMMANDS SUCH SQUEEZING NURSE'S HANDS AND WIGGLING TOES TO VERBAL COMMAND. PATIENT WEAK, LIMITED ROM OF EXTREMITIES. PATIENT AFEBRILE. NO SIGNS OF PAIN AT THIS TIME. PATIENT SATTING 90% AND GREATER ON SPONTANEOUS PS 10/5, 25% FIO2. MODERATE AMOUNT OF FROTHY, WHITE SPUTUM BEING SUCTIONED FROM THE ETT. LUNGS CLEAR THROUGHOUT, DIMINISHED IN LOWER LOBES. PATIENT IN SR, HR IN THE 60S. SBP 150S TO 170S. ABDOMEN MODERATELY DISTENDED, SOFT, WITH HYPOACTIVE BS NOTED. OG IN PLACE; CLAMPED. PEG TUBE IN PLACE WITH VITAL HIGH PROTEIN INFUSING AT GOAL RATE OF 50 MLS/ HOUR WITH 30 ML WATER FLUSH Q4H. RESIDUAL OF 80 MLS OBTAINED AND REINSTILLED THIS AM. LAST BM DOCUMENTED 2 DAYS AGO. TEMP PROBE BARBOZA IN PLACE DRAINING YELLOW COLORED URINE. SKIN PALE AND FRAGILE. FEET DISCOLORED AND RASH NOTED. BUTTOCKS REDDENED. 1+ EDEMA NOTED IN BUES AND BLES. PROPOFOL INFUSING AT 15 MCG/ KG/ MINUTE, HEPARIN AT 12 UNITS/ KG/ HOUR, NS TKO X 2. PATIENT RECEIVING KPHOS, KCL AND LASIX THIS AM. BED LOW, CALL LIGHT IN REACH. WILL CONTINUE TO MONITOR PATIENT FREQUENTLY THROUGHOUT SHIFT.
--- NOTE | 2020-05-29 09:00 | NUR ---
DR. BROOKE UPDATED ON PATIENT. DOCTOR INFORMED OF INCREASED ETT SECRETIONS PER METER RECORD CLERK RN. INFORMED THAT PATIENT HAS HAD SBP 170S TO 180S AND THAT PATIENT TAKES COZAAR AND VERAPAMIL PER MED RECONCILIATION, ALTHOUGH MED REC HAS NOT BEEN UPDATED OR COMPLETED. DOCTOR INFORMED OF HOS AND [facility] BEING GIVEN THIS AM.
--- NOTE | 2020-05-29 13:10 | NUR ---
PATIENT AFEBRILE. NO SIGNS OF PAIN. PATIENT SATTING 90% AND GREATER ON 12/13, 25% FIO2. HR IN THE 60S. SBP 160S TO 180S. COZAAR GIVEN. TF RESIDUAL OF ZERO. ANOTHER 30 MM KPHOS STARTED. NO OTHER ACUTE CHANGES TO NOTE ON AT THIS TIME. WILL CONTINUE TO MONITOR.
--- NOTE | 2020-05-29 16:30 | NUR ---
PATIENT AFEBRILE. NO SIGNS OF PAIN. PATIENT BACK ON AC SETTINGS; AC 16, TV 570, PEEP 5 AND 25% FIO2 BECAUSE OF DECREASING TIDAL VOLUMES ON SPONTANEOUS PS. HR IN THE 60S. SBP 160S TO 170S. NO OTHER ACUTE CHANGES TO NOTE ON AT THIS TIME. WILL CONTINUE TO MONITOR.
--- NOTE | 2020-05-29 18:27 | NUR ---
SHIFT SUMMARY PATIENT REMAINED INTUBATED AND ON SEDATION. PATIENT ABLE TO FOLLOW SOME SIMPLE COMMANDS. PATIENT REMAINED AFEBRILE. NO SIGNS OF PAIN DURING SHIFT. LUNGS REMAINED CLEAR AND DIMINISHED IN LOWER LOBES. PATIENT CONTINUED TO HAVE MODERATE TO LARGE AMOUNT OF FROTHY, WHITE SECRETIONS FROM ETT. PATIENT HAD COPIOUS ORAL SECRETIONS. PATIENT ON SPONTANEOUS PRESSURES SUPPORT UNTIL A LITTLE AFTER NOON, WHEN PATIENT PLACED ON AC SETTINGS FOR DECREASED TIDAL VOLUMES. PATIENT REMAINED IN SR, HR IN THE 60S. SBP 150S TO 180S. PATIENT STARTED BACK ON ONE OF HIS HOME HTN MEDICATIONS. PRN HYDRALAZINE ALSO ORDERED FOR SBP OVER 170. NO BM THIS SHIFT. TF REMAINED AT GOAL RATE OF 50 MLS/ HOUR. RESIDUALS 80 MLS AND BELOW. 2095 MLS OF URINE OUT FROM BARBOZA. NO CHANGE TO SKIN. PATIENT REPOSITIONED THROUGHOUT SHIFT. PROPOFOL AT 20 MCG/ KG/ MINUTE, NS TKO X 2, HEPARIN REMAINS AT 12 UNIT/ KG/ HOUR. PATIENT RECEIVED ZOSYN THIS SHIFT. PATIENT RECEIVED TOTAL OF 50 MM KPHOS, 30 MEQ KCL, AND ONE DOSE OF IV LASIX. PATIENT APPEARS WITHOUT PAIN OR DISTRESS AT THIS TIME. BED LOW, CALL LIGHT IN REACH. WILL BE GIVING REPORT TO ONCOMING AIRLINE HOSTESS RN SHORTLY.
--- NOTE | 2020-05-29 19:38 | NUR ---
pt remains intubated and on light sedation. per dayshift pt had copious amounts of oral secretions. lung sounds are clear. was on spontaneous vent settings majority of day. however is currently on ac settings 16/570/5/25%. tolerating well. sbp elevated in the 170s. hr 60-70s. tf at goal of 50mls/hr. ogt remains clamped. will continue to monitor
[2020-05-30 03:48] LABS: Hematocrit 27.8 % (37.0-53.0); Hemoglobin 9.9 g/dL (13.5-17.5); Mean Corpuscular HGB 29.6 pg (26.0-34.0); Mean Corpuscular HGB Conc 35.6 g/dL (31.5-36.5); Mean Corpuscular Volume 83 fL (80-100); Mean Platelet Volume 9.5 fL (9.1-12.4); NRBC ABSOLUTE 0.03 K/mm3 (0.00-0.02); NRBC Auto 0.2 /100 WBC (0.0-0.2); Platelet Count 202 K/mm3 (150-400); RDW Coefficient Variation 14.6 % (11.7-14.2); RDW Standard Deviation 43.8 fL (35.1-46.3); Red Blood Cell Count 3.35 M/mm3 (4.30-5.90); White Blood Cell Count 19.93 K/mm3 (4.00-11.30)
[2020-05-30 04:04] LABS: International Normalized Ratio 1.87; Prothrombin Time Results 19.3 Sec (9.7-11.5)
[2020-05-30 04:06] LABS: Albumin, Blood 2.4 g/dL (3.4-5.0); Anion Gap 9 mmol/L (6-16); Blood Urea Nitrogen 19 mg/dL (8-24); CO2, Blood 26 mmol/L (21-32); Calcium, Blood 8.1 mg/dL (8.5-10.1); Chloride, Blood 101 mmol/L (98-108); Creatinine, Blood 0.91 mg/dL (0.60-1.20); Glomerular Filtration Rate >60 (60-); Glucose, Blood 90 mg/dL (70-99); Magnesium, Blood 1.6 mg/dL (1.6-2.4); Phosphorus, Blood 3.1 mg/dL (2.5-4.9); Potassium, Blood 2.8 mmol/L (3.5-5.5); Sodium, Blood 136 mmol/L (136-145)
[2020-05-30 04:33] LABS: BAND PERCENT MAN 13 % (0-8); BASOPHILS PERCENT MAN 0 % (0-2); EOSINOPHILS ABSOLUTE MAN 0.59 K/mm3 (0.00-0.68); EOSINOPHILS PERCENT MAN 3 % (0-6); LYMPHOCYTES ABSOLUTE MAN 1.39 K/mm3 (0.84-5.20); LYMPHOCYTES PERCENT MAN 7 % (21-46); METAMYELOCYTE ABSOLUTE MAN 0.79 K/mm3 (0.00-0.00); METAMYELOCYTE PERCENT MAN 4 % (0-0); MONOCYTES ABSOLUTE MAN 1.19 K/mm3 (0.16-1.47); MONOCYTES PERCENT MAN 6 % (4-13); MYELOCYTE ABSOLUTE MAN 0.79 K/mm3 (0.00-0.00); MYELOCYTE PERCENT MAN 4 % (0-0); NEUTROPHILS ABSOLUTE MAN 15.14 K/mm3 (1.96-9.15); SEG NEUTROPHILS PERCENT MAN 63 % (41-73); TOTAL CELLS COUNTED 100
--- NOTE | 2020-05-30 06:24 | NUR ---
SHIFT SUMMARY: NO ACUTE CHANGES T/O SHIFT. VENT SETTINGS REMAIN THE SAME. PT CONTINUES TO HAVE LARGE AMTS OF ETT/ORAL SECRETIONS. PT HYPERTENSIVE MAJORITY OF SHIFT. HYDRALAZINE X 2 AND FENTANYL X 1 GIVEN. SBP CURRENTLY IN THE 160S. HR IN THE 60S. TF INFUSING AT GOAL. BT NORMOACTIVE X 4. PT DIURESED LARGE AMT OF URINE. K+ LOW THIS AM AND IS CURRENTLY BEING REPLACED. PT HAD SMALL BM. FULL BED BATH GIVEN. HEPARIN INFUSING AT 13U. PROPOFOL INFUSING AT 30MCG. WILL PASS REPORT TO ONCOMING SHIFT
--- NOTE | 2020-05-30 09:00 | NUR ---
DR. BROOKE UPDATED ON PATIENT STATUS. INFORMED THAT PATIENT HAD SEDATION VACATION AND WEAN THIS AM BUT THAT IT ONLY LASTED AROUND 40 MINUTES BECAUSE OF INCREASED BP AND FREQUENT COUGHING. INFORMED THAT PATIENT HYPERTENSIVE MOST OF THE NIGHT. INFORMED THAT WBCS INCREASING AND THAT SPUTUM HAS CHANGED FROM FROTHY AND WHITE TO THICK AND PALE YELLOW IN COLOR. INFORMED THAT DURING SEDATION VACATION THAT PATIENT WAS ABLE TO FOLLOW A FEW SIMPLE COMMANDS AND THAT IT APPEARED TO NURSE THAT PATIENT HAS SOME L SIDED DEFICIT. DOCTOR INFORMED THAT PATIENT'S POTASSIUM LEVEL WAS 2.8 THIS AM. INFORMED THAT PATIENT RECEIVING 40 MEQ KCL AND THAT NURSE TO DRAW POTASSIUM AN HOUR AFTER FINISHED AND LET DR. HOGUE KNOW RESULT. NO ORDERS RECEIVED AT THIS TIME.
--- NOTE | 2020-05-30 09:16 | NUR ---
INITIAL ASSESSMENT PATIENT INTUBATED. PATIENT RESPONDING TO PAINFUL STIMULI WHEN ON SEDATION. PATIENT PLACED ON 40 MINUTE SEDATION VACATION AND WEAN THIS AM. PATIENT ABLE TO FOLLOW SIMPLE COMMANDS OF OPENING EYES, SQUEEZING HANDS AND WIGGLING FEET TO NURSE COMMAND. PATIENT'S LEFT SIDE SEEMED WEAKER THAN LEFT; ESPECIALLY LEFT FOOT. PATIENT PLACED BACK ON SEDATION AFTER SBP INCREASED TO 200S AND PATIENT CONTINUED TO HAVE FREQUENT COUGHING. PATIENT AFEBRILE. LUNGS CLEAR IN UPPER LOBES AND DIMINISHED IN LOWER LOBES AFTER SUCTIONING. INSPIRATORY RHONCHI NOTED IN RIGHT LOWER LOBE. PATIENT BACK ON AC 16, TV 590, PEEP 5 AND 25% FIO2. PATIENT ON SPONTANEOUS PS 7/5 AND 25% DURING WEAN. MODERATE AMOUNT OF THICK, PALE YELLOW SPUTUM IS NOW BEING SUCTIONED FROM THE ETT. PATIENT HAVING COPIOUS ORAL SECRETIONS. PATIENT IN SR, HR IN THE 60S. SBP IN THE 160S. HR IN THE 90S, SBP IN THE LOW 200S DURING WEAN. ABDOMEN MODERATELY DISTENDED, SOFT, WITH NORMOACTIVE BS NOTED. TF INFUSING AT GOAL RATE OF 50 MLS PER HOUR WITH 30 ML WATER FLUSH Q4H. RESIDUAL OF 40 MLS OBTAINED AND REINSTILLED THIS AM. PATIENT HAD BM ON FOREMAN OR SUPERVISOR AND OPERATOR PER FOREMAN OR SUPERVISOR AND OPERATOR RN REPORT. BARBOZA DRAINING YELLOW COLORED URINE. SKIN PALE AND FRAGILE. FEET AND BUTTOCKS REDDENED. BLES DISCOLORED. 1+ EDEMA NOTED TO BUES AND BLES. 2+ EDEMA NOTED IN HANDS. PROPOFOL INFUSING AT 20 MCG/ KG/ MINUTE AT THIS TIME. HEPARIN INFUSING AT 13 UNITS/ KG/ HOUR. NS TKO X 2. PATIENT RECEIVING 40 MEQ KCL THIS AM AND 40 MG IV LASIX GIVEN THIS AM. BED LOW, CALL LIGHT IN REACH. PATIENT APPEARS COMFORTABLE AT THIS TIME. WILL CONTINUE TO MONITOR PATIENT FREQUENTLY THROUGHOUT SHIFT.
--- NOTE | 2020-05-30 10:46 | NUR ---
DR. HOGUE CALLED AND INFORMED OF POTASSIUM LEVEL OF 3.0. ORDER RECEIVED.
--- NOTE | 2020-05-30 13:20 | NUR ---
PATIENT FOLLOWING SIMPLE COMMANDS AND NODDING/ SHAKING HEAD TO ANSWER QUESTIONS. PATIENT SHAKES HEAD NO WHEN ASKED IF IN PAIN. PATIENT SHAKES HEAD YES WHEN ASKED IF HE IS WANTS TO HAVE THE TUBE OUT. BP AND HR STABLE AT THIS TIME. PATIENT HR IN THE 50S WITH HYPOTENSION AFTER PRECEDEX INFUSION STARTED. PATIENT RECEIVED PT AND IV KCL FOR POTASSIUM OF 3.0. TF RESIDUAL OF 25 MLS OBTAINED AND REINSTILLED.
[2020-05-30 15:18] LABS: Percent Saturation 25.2 % (20.0-50.0)
--- NOTE | 2020-05-30 16:00 | NUR ---
PRECEDEX ON SB HAS SEEMED TO BE EFFECTING PATIENT'S BP MORE THAN PROPOFOL AND MAKING PATIENT HYPOTENSIVE. PROPOFOL AT 20 MCG/ KG/ MINUTE. HR 50S TO 60S. SBP 80S TO LOW 100S. PATIENT GIVEN [address] INMAN ORDERS. TF RESIDUAL OF 20 MLS OBTAINED AND REINSTILLED.
--- NOTE | 2020-05-30 17:40 | NUR ---
SHIFT SUMMARY PATIENT REMAINED INTUBATED. PATIENT REMAINED RESPONDING TO VERBAL STIMULI AND FOLLOWING SIMPLE COMMANDS WHEN OFF SEDATION OR WHEN ON MINIMAL SEDATION. PATIENT REMAINED AFEBRILE. PATIENT NOTED TO HAVE L SIDED DEFICIT. PATIENT REMAINED ON AC 16, TV 570, PEEP 5 AND 25% FIO2. PATIENT WAS PLACED ON SPONTANEOUS PS 7/5, 25% FOR SHORT TIME BUT SWITCHED BACK TO AC AFTER SBP INCREASED TO 200S AND PATIENT COUGHING FREQUENTLY FROM TUBE. PATIENT HAD MODERATE AMOUNT OF THICK, PALE YELLOW SECRETIONS FROM ETT. PATIENT CONTINUED TO HAVE COPIOUS ORAL SECRETIONS. PATIENT SB TO SR, HR 50S TO 90S. SBP RANGED FROM 70S T0 170S. BP HIGH AT BEGINNING OF SHIFT AND MOST OF RECOVERY ASSISTANT, THEREFORE DOCTOR STARTED MORE HTN MEDICATIONS, HOWEVER PATIENT HYPOTENSIVE AFTER PRECEDEX STARTED LATER IN SHIFT. NO BM THIS SHIFT. TF RESIDUALS 40 MLS AND BELOW. BARBOZA HAD 2100 MLS OF YELLOW COLORED URINE OUT. PATIENT RECEIVED 40 MG IV LASIX THIS AM. NO CHANGE TO SKIN. PATIENT REPOSITIONED THROUGHOUT SHIFT. PROPOFOL CURRENTLY AT 20 MCG/ KG/ MINUTE, PRECEDEX SB, NS TKO X 2. PATIENT RECEIVED 80 MEQ KCL IV, 40 MEQ KCL PT, 2 G MAGNESIUM, A 500 ML BS BOLUS, AND ALBUMIN THIS SHIFT. NEW SPUTUM CULTURE SENT TO LAB. DR. BROOKE SPOKE WITH PATIENT'S ON A FEW DIFFERENT OCCASIONS TODAY. PATIENT APPEARS COMFORTABLE AT THIS TIME. BED LOW, CALL LIGHT IN REACH. WILL BE GIVING REPORT TO ONCOMING RECOVERY ASSISTANT NURSE SHORTLY.
--- NOTE | 2020-05-30 19:30 | NUR ---
ASSUMED CARE OF PT, BEDSIDE REPORT RECEIVED. PT ROUSES EASILY TO VERBAL STIMULI, FOLLOWS COMMANDS, ANSWERS YES/NO QUESTIONS BY NODDING AND SHAKING HIS HEAD. PUPILS ARE EQUAL BILAT AND REACTIVE. PT DENIES PAIN, DENIES NAUSEA, ANSWERS YES THAT HE IS COMFORTABLE AND YES THAT HE IS WARM ENOUGH, NO HE WOULD NOT LIKE TO HAVE A SHEET COVERING HIS LEGS. PROPOFOL IS NOTED AT 20 MCG/KG/MIN, NS AT TKO, PRECEDEX WAS PLACED TO STANDBY ON DAY SHIFT OFFGOING RN REPORTS THAT EVEN AT 0.1 MCG/KG/MIN PT WAS NOTED TO BECOME HYPOTENSIVE, HEPARIN AT 13 UNITS/KG/HR, CENTRAL LINE TO RIGHT SUBCLAVIAN, DRESSING CDI, SITE WNL, EXTENDED DWELL TO LEFT UPPER ARM, DRESSING CDI, SITE WNL. LUNGS CLEAR WITH DIM BASES BILAT, VENT AC 16, TV 570, PEEP 5, FIO2 25%, 8.0 TUBE 24 CM AT TEETH, SUCTION OF ETT PRODUCES MODERATE AMOUNT OF THICK YELLOW/WHITE SECRETIONS, SATS ARE MAINTAINED. HRR, SINUS TO SINUS BRADYCARDIA NOTED ON MONITOR, PRESSURES HYPERTENSIVE AT THIS TIME, EDEMA IS NOTED, CAP REFILL IS BRISK. ABD DISTENDED, PEG TUBE TO LEFT UPPER, VITAL HIGH PROTEIN AT GOAL, RESIDUAL MINIMAL AT THIS TIME, OG IN PLACE WITH BRIGHT YELLOW IN TUBING BUT NO RESIDUAL IS ABLE TO BE OBTAINED FROM OG TUBE, BOWEL TONES ARE HYPOACTIVE, ABD SOFT, NO GRIMACING WITH PALPATION. TEMP PROBE BARBOZA IN PLACE DRAINING CLEAR YELLOW URINE TO GRAVITY. WILL CONTINUE TO MONITOR AND TITRATE SEDATION NEEDED, PLAN FOR SPONT BREATHING TRIAL IN AM, PLAN FOR SEDATION VACATION WITH SPONT BREATHING TRIAL.
[2020-05-31 02:15] LABS: Hematocrit 28.2 % (37.0-53.0); Hemoglobin 9.6 g/dL (13.5-17.5); Mean Corpuscular HGB 29.2 pg (26.0-34.0); Mean Corpuscular Volume 86 fL (80-100); Mean Platelet Volume 9.8 fL (9.1-12.4); NRBC ABSOLUTE 0.03 K/mm3 (0.00-0.02); NRBC Auto 0.2 /100 WBC (0.0-0.2); Platelet Count 199 K/mm3 (150-400); RDW Coefficient Variation 15.1 % (11.7-14.2); RDW Standard Deviation 47.1 fL (35.1-46.3); Red Blood Cell Count 3.29 M/mm3 (4.30-5.90)
[2020-05-31 02:30] LABS: Albumin, Blood 2.5 g/dL (3.4-5.0); Anion Gap 7 mmol/L (6-16); Blood Urea Nitrogen 23 mg/dL (8-24); Bun/Creatinine Ratio 24.3 (12.0-20.0); CO2, Blood 26 mmol/L (21-32); Calcium, Blood 8.3 mg/dL (8.5-10.1); Chloride, Blood 103 mmol/L (98-108); Creatinine, Blood 0.95 mg/dL (0.60-1.20); Glomerular Filtration Rate >60 (60-); Glucose, Blood 105 mg/dL (70-99); International Normalized Ratio 2.03; Magnesium, Blood 2.1 mg/dL (1.6-2.4); Phosphorus, Blood 2.8 mg/dL (2.5-4.9); Potassium, Blood 3.4 mmol/L (3.5-5.5); Prothrombin Time Results 20.9 Sec (9.7-11.5); Sodium, Blood 136 mmol/L (136-145)
[2020-05-31 02:44] LABS: BAND PERCENT MAN 22 % (0-8); BASOPHILS PERCENT MAN 0 % (0-2); EOSINOPHILS ABSOLUTE MAN 0.35 K/mm3 (0.00-0.68); EOSINOPHILS PERCENT MAN 2 % (0-6); LYMPHOCYTES ABSOLUTE MAN 1.06 K/mm3 (0.84-5.20); LYMPHOCYTES PERCENT MAN 6 % (21-46); METAMYELOCYTE PERCENT MAN 9 % (0-0); MONOCYTES ABSOLUTE MAN 0.89 K/mm3 (0.16-1.47); MONOCYTES PERCENT MAN 5 % (4-13); MYELOCYTE ABSOLUTE MAN 2.67 K/mm3 (0.00-0.00); MYELOCYTE PERCENT MAN 15 % (0-0); NEUTROPHILS ABSOLUTE MAN 11.21 K/mm3 (1.96-9.15); SEG NEUTROPHILS PERCENT MAN 41 % (41-73); TOTAL CELLS COUNTED 100
--- NOTE | 2020-05-31 06:28 | NUR ---
PT RESTS QUIETLY THROUGHOUT SHIFT, PROPOFOL WAS INCREASED TO 40 MCG/KG/MIN DURING BEDBATH PT WAS NOTED COUGHING AND GAGGING ON ETT WITH MARKED GRIMACING NOTED, WAS ABLE TO DECREASE PROPOFOL TO 30 MCG/KG/MIN FOLLOWING COMPLETION OF BATH. PT CONTINUES TO FOLLOW COMMANDS THROUGHOUT NOC AND ANSWER YES/NO QUESTIONS. PROPOFOL WAS PLACED TO STANDBY AT 0535 THIS AM FOR OPEN ENDED SPONTANEOUS BREATHING TRIAL. PT IS CURRENTLY ON PRESSURE SUPPORT OF 7, FIO2 25%, PEEP 5, CURRENT RATE HIGH 20S WITH TIDAL VOLUMES NEAR 500, SATS ARE HIGH 90S, PT IS NOTED TO BE RESTING QUIETLY WITH EYES CLOSED. LUNGS CLEAR THROUGHOUT NOC WITH DIM BASES BILAT, OCCASIONAL COARSE LUNG SOUNDS CLEAR WITH SUCTION OF ETT. REMAINS IN SINUS RHYTHM, PRESSURES ARE IMPROVED ALTHOUGH DID HAVE EPISODE OF HYPERTENSION REQUIRING PRN APRESOLINE ADMINISTRATION FOLLOWING PLACING PROPOFOL TO STANDBY THIS AM. PEG TUBE RESIDUALS LESS THAN 40 THROUGHOUT NOC.
--- NOTE | 2020-05-31 08:10 | NUR ---
INITIAL ASSESSMENT PATIENT INTUBATED. PRECEDEX AND PROPOFOL OFF AT THIS TIME. PATIENT RESPONDING TO VERBAL STIMULI AND FOLLOWING SIMPLE COMMANDS. PATIENT ABLE TO NOD AND SHAKE HEAD TO ANSWER YES/ NO QUESTIONS. PATIENT WEAK WITH LIMITED MOVEMENT TO ALL EXTREMITIES. LEFT SIDE IS NOTABLY WEAKER THAN RIGHT. PATIENT AFEBRILE. PATIENT DENIES PAIN. LUNGS CLEAR, LOWER LOBES DIMINISHED. PATIENT SATTING 90% AND GREATER ON SPONTANEOUS PS 7/5, 25% FIO2. SMALL AMOUNT OF THICK, WHITE/ PALE YELLOW SPUTUM BEING SUCTIONED FROM THE ETT. COPIOUS AMOUNT OF ORAL SECRETIONS NOTED. PATIENT IN SR, HR IN THE 90S. SBP 150S TO 160S. ABDOMEN MODERATELY DISTENDED, SOFT, WITH NORMOACTIVE BS NOTED. PATIENT RECEIVING VITAL HIGH PROTEIN AT GOAL RATE OF 50 MLS/ HOUR WITH 30 ML WATER FLUSH Q4H. RESIDUAL OF 20 MLS OBTAINED AND REINSTILLED THIS AM. TEMP PROBE BARBOZA DRAINING YELLOW COLORED URINE. FEET AND BUTTOCKS REDDENED. FEET/ BLES DISCOLORED. PATIENT HAS PITTING EDEMA IN HANDS, FEET AND BLES. TRACE EDEMA NOTED TO [place]. HEPARIN INFUSING AT 13 UNITS/ KG/ HOUR, NS TKO X 2. PATIENT RECEIVING 20 MEQ KCL IV THIS AM FOR POTASSIUM OF 3.4. PATIENT ALSO HAS SCHEDULED POTASSIUM TO BE GIVEN DOWN TUBE DAILY. BED LOW, CALL LIGHT IN REACH. WILL CONTINUE TO MONITOR PATIENT FREQUENTLY THROUGHOUT SHIFT.
--- NOTE | 2020-05-31 09:00 | NUR ---
DR. COLMENARES IN PATIENT ROOM TO EXAMINE PATIENT. DOCTOR UPDATED ON PATIENT STATUS. TF TURNED OFF FOR NOW FOR POSSIBLE EXTUBATION.
--- NOTE | 2020-05-31 12:23 | NUR ---
PATIENT RESTING QUIETLY IN BED. PATIENT REMAINS INTUBATED. PATIENT REMAINS WITH PRECEDEX AND PROPOFOL ON SB. PATIENT GIVEN PRN FENTANYL AFTER INDICATING THAT HE IS IN PAIN. PATIENT REPORTED RELIEF WITH. PATIENT REMAINS SATTING 90% AND GREATER ON SAME SPONTANEOUS PS SETTINGS. HR 60S TO 80S. SBP LOW 100S TO 140S. TF ON HOLD AT THIS TIME FOR POSSIBLE EXTUBATION. PEG TUBE RESIDUAL OF ZERO. PATIENT APPEARS COMFORTABLE AT THIS TIME. WILL CONTINUE TO MONITOR.
--- NOTE | 2020-05-31 12:41 | NUR ---
Review of pt with nursing and physician plan is family meeting today to move plan of care forward possible trach placement
--- NOTE | 2020-05-31 16:02 | NUR ---
Spiritual care visit conducted. Patient is lying in bed and asleep. Patient's family is bedside. Elvia tells me that patient has aspiration pneumonia and has been very sleepy. I provide prayer for patient and family. I will visit patient later when they are not wantin him to sleep. Family voice appreciation for the visit.
--- NOTE | 2020-05-31 16:04 | NUR ---
Review with physician discussion with family. We will give him time and change him to limited treatment. He will remain no cpr or cardiac recusitaiton but family will accept reintubation.
--- NOTE | 2020-05-31 16:59 | NUR ---
Family at bedside, pt extubated made limited recusitation no cpr but will accept reintubation. will see how he progresses and discussion of prognosis and paln of care.
--- NOTE | 2020-05-31 19:15 | NUR ---
SHIFT SUMMARY PATIENT INTUBATED WITH SEDATION ON STANDBY AT BEGINNING OF SHIFT. PATIENT EXTUBATED AFTER , DAUGHTER AND SON IN LAW ARRIVED AND HAD LONG CONVERSATION WITH PRIMARY NURSE AND DR. COLMENARES CONCERNING PATIENT'S HEALTH AND FUTURE. EXTUBATION AT 1445. PATIENT PLACED ON 4 L NC. PATIENT HAD LARGE AMOUNTS OF PHLEGM AND CONTINUALLY CLEARING THROAT AND TRYING TO COUGH UP PHLEGM. NOT LONG AFTER PATIENT EXTUBATION PATIENT SIGNALING ENDING HIS LIFE BY RUNNING HIS FINGER ACROSS HIS THROAT AND ALSO BY PINCHING HIS NOSE SHUT. PATIENT, PATIENT'S AND PATIENT'S DAUGHTER DECIDED TO CHANGE PATIENT TO COMFORT CARE STATUS. DR. COLMENARES NOTIFIED AND COMFORT CARE ORDERS PLACED. , DAUGHTER AND SON IN LAW WENT AND GOT DINNER AND THEN CAME BACK TO BE WITH PATIENT. COMFORT CARE CART ORDERED. REPORT GIVEN TO ASSUMING INSURANCE AGENCY MANAGER NURSE.
--- NOTE | 2020-05-31 23:08 | NUR ---
PT WITH DYSPNEA R/T COUGHING, ASSISTED OFFGOING RN WITH BOOSTING PT IN BED, PT REPORTS IMPROVEMENT WITH REPOSITIONING. DOES ADMIT TO PAIN, FENTANYL TO BE ADMIN BY OFFGOING RN. WILL MONITOR. PT DOES ADMIT TO ANXIETY BUT PAIN MEDS ARE PREFERRED AT THIS TIME AND PLAN TO REASSESS IF PT IS STILL ANXIOUS FOLLOWING PAIN MEDICATION ADMINISTRATION.
--- NOTE | 2020-06-01 07:28 | NUR ---
06/01/20 0630 RECEIVED PT FROM ICU VIA BED. O2 AT 4LPM VIA N/C. OCC. COUGH AND SUCTIONE EQUIPMENT SET-UP. PT INFORMED OF TRANSFER AND SURROUNDINGS BUT DID NOT OPEN EYES OR ACKNOWLEDGE VERBALLY. BARBOZA PATENT AND DRAINING WELL. APPEARS COMFORTABLE IN BED WITH HOB ELEVATED 60 DEGREES.
--- NOTE | 2020-06-01 11:29 | NUR ---
Pt resting as he awakens respirations mor diaphrmatic and labored. Review of pain meds with physician, nursing and familu. Family states pt has a reaction to dilaudid duing a hopitalization were he was very ill and possibly had a seizure. no issues with narcotics since. comfort orders placed. discussed hosme with hospice and states she can not do it. Pt not eminendt but may transtition quickly will monitor. care managers updated.
--- NOTE | 2020-06-01 15:07 | NUR ---
Nursing reports pt struggling with roxinol and swallow and secretions. Review with physician order for updraft morphine if needed.
--- NOTE | 2020-06-01 18:41 | NUR ---
PT SLEEPING SOUNDING. NO DISTRESS NOTED.
--- NOTE | 2020-06-02 07:36 | NUR ---
06/02/20 0000 GOOD RELIEF WITH MEDS GIVEN. SEE MAR. ORAL CARE GIVEN AND REPOSITIONED TO OTHER SIDE.
--- NOTE | 2020-06-02 11:47 | NUR ---
Spiritual care visit conducted. Patient is lying in bed and has eyes closed. He has labored breathing. Upon lying my hand on his shoulder and saying his name, patient opens his eyes but is unable to focus. I provide prayer for patient that is in line with spiritual beliefs. Patient keeps his eyes open throughout the prayer and closes them after the prayer and does not open them again. I let patient go back to resting his eyes. I will continue to remain available to patient and family.
--- NOTE | 2020-06-02 12:58 | NUR ---
0800 NOTE HE RECEIVED MORPHINE AND ATIVAN AND ATROPINE DROPS OVER NIGHT. HIS RESPIRATIONS ARE REGULAR BUT A LITTLE LABORED. NO FAMILY YET THIS MORNING.
--- NOTE | 2020-06-02 13:08 | NUR ---
1000 NOTE HE WAS SUCTIONED ORALLY AFTER VOMITING SOME BILE WHEN TURNED ONTO HIS SIDE. HOB ALSO ELEVATED SOME. RESPIRATIONS REGULAR.
--- NOTE | 2020-06-02 13:16 | NUR ---
1200 NOTE FAMILY AT BEDSIDE. PALLIATIVE CARE NURSE ALSO SPENDING TIME WITH THEM. NO CHANGE IN SABINO. WILL CONTINUE TO MEDICATE TO TRY TO COMFOR HIM.
--- NOTE | 2020-06-02 17:35 | NUR ---
1400 NOTE FAMILY HAS GONE. HE REMAINS REGULAR RESPIRATIONS AT 32/MIN. THE RATE DOESN'T CHANGE AFTER MEDICATIONS BUT THE EFFORT LESSONS. LOW U.O. IN BARBOZA UROMETER.
--- NOTE | 2020-06-02 17:38 | NUR ---
1600 NOTE PALLIATIVE CARE NURSE RETURNED. HE GRIMACED WHEN LAST TURNED. ZOFRAN AND ROXANOL GIVEN. ZOFRAN WAS INCLUDED D/T SOME DISTENTION AND HIS EARLIER GREEN BILE EMESIS.
--- NOTE | 2020-06-02 18:50 | NUR ---
1800 NOTE ROXANOL MAY WORK BETTER FOR HIS LABORED RESPIRATIONS. IT WAS GIVEN AT 1600 AND AT 1830. HE ALSO HAD SEVERAL DOSES OF IV MORPHINE AND ATIVAN. HE ALSO RECEIVED ZOFRAN X1. HE HAS BEEN TURNED X2. HIS FAMILY WAS HERE A FEW HRS THEN LEFT TO TAKE CARE OF ARRANGEMENTS.
--- NOTE | 2020-06-02 20:14 | NUR ---
RN NOTIFIED ITS IIN PATIENTS BELONGINGS BAG
--- NOTE | 2020-06-02 21:38 | NUR ---
UPON ENTERING PT. ROOM PT. FOUND NOT BREATHING @1933, NO RESPIRATIONS, NO PULSE, NO HEART OR BREATH SOUNDS AUSCULTATED. NO CODE CALLED PT. DNR/COMFORT CARE. INDWELLING URINARY CATHETER AND POWERGLIDE IV ACCES DEVICE IN LT ARM REMOVED AND DRESSING APPLIED. CENTRAL LINE TO RT SUBCLAVIAN AND PEG TUBE LEFT IN PLACE PER LOCK AND DAM EQUIPMENT REPAIRER TAMMY. HOSPITALIST DR. SIMEON NOTIFIED AND FAMILY MADE AWARE. POSTMORTEM CARE PERFORMED, BELONGINGS CHECKED OFF AND GIVEN TO CARO FROM HOME. BODY LEFT UNIT @2124.
== END 2020-06-02 19:33 | DRG 870 ==
LOC: ER 22:00 → ICUW 05-26 00:19 → MEDS 06-01 06:29
PROVIDERS: Internal Medicine; Internal Medicine Critical Care Medicine; Internal Medicine Nephrology; Internal Medicine Pulmonary Disease; Nurse Practitioner Acute Care; Student in an Organized Health Care Education/Training Program; ADMIT Internal Medicine
PROC: 5A1955Z Respiratory Ventilation, Greater than 96 Consecutive Hours (ICD-10-PCS; principal; 2020-05-25)
PROC: 0BH17EZ Insertion of Endotracheal Airway into Trachea, Via Natural or Artificial Opening (ICD-10-PCS; 2020-05-25)
PROC: 05H533Z Insertion of Infusion Device into Right Subclavian Vein, Percutaneous Approach (ICD-10-PCS; 2020-05-25)
DX: A41.9 Sepsis, unspecified organism (principal); R65.21 Severe sepsis with septic shock; E43 Unspecified severe protein-calorie malnutrition; J96.01 Acute respiratory failure with hypoxia; J69.0 Pneumonitis due to inhalation of food and vomit; G92 Toxic encephalopathy; N17.9 Acute kidney failure, unspecified; J44.0 Chronic obstructive pulmonary disease with (acute) lower respiratory infection; E87.2 Acidosis; I13.0 Hypertensive heart and chronic kidney disease with heart failure and stage 1 through stage 4 chronic kidney disease, or unspecified chronic kidney disease; E22.2 Syndrome of inappropriate secretion of antidiuretic hormone; I48.20 Chronic atrial fibrillation, unspecified; Z51.5 Encounter for palliative care; Z66 Do not resuscitate; Z20.828 Contact with and (suspected) exposure to other viral communicable diseases; I67.9 Cerebrovascular disease, unspecified; K44.9 Diaphragmatic hernia without obstruction or gangrene; K21.9 Gastro-esophageal reflux disease without esophagitis; Z68.27 Body mass index [BMI] 27.0-27.9, adult; E87.6 Hypokalemia; E83.51 Hypocalcemia; E83.42 Hypomagnesemia; E03.9 Hypothyroidism, unspecified; E83.39 Other disorders of phosphorus metabolism; G47.33 Obstructive sleep apnea (adult) (pediatric); N18.2 Chronic kidney disease, stage 2 (mild); D63.1 Anemia in chronic kidney disease; I50.9 Heart failure, unspecified; E87.70 Fluid overload, unspecified; D50.9 Iron deficiency anemia, unspecified; Z93.1 Gastrostomy status; Z86.718 Personal history of other venous thrombosis and embolism; Z79.01 Long term (current) use of anticoagulants; Z79.52 Long term (current) use of systemic steroids
CPT/HCPCS: 0241U; 31500; 31720; 36556; 36600; 51702; 70450; 71045; 74018; 80047; 80048; 80053; 80069; 81001; 82310; 82330; 82728; 82803; 82947; 83540; 83550; 83605; 83690; 83735; 83880; 83930; 83935; 84100; 84132; 84295; 84300; 84443; 84484; 84550; 85014; 85025; 85610; 85730; 87040; 87070; 87077; 87086; 87186; 87205; 93005; 93010; 93308; 93321; 94002; 94003; 96374-59; 96375; 96376; 99291-25; 99292; A9270-GY; C1751; C9113; G0480; J0171; J0360; J0610; J1644; J1720; J1940; J2060; J2250; J2270; J2405; J2543; J2704; J3010; J3370; J3475; J3480; J7030; J7040; J7050; J7060; P9046